=== PATIENT | female | born 1940 | race Caucasian/White ===

== ENCOUNTER → 2017-01-12 | Outpatient (CLI) | payer OTHER ==
[2015-10-06 11:30] VITALS: BP 185/85
--- NOTE | 2017-01-12 14:03 | KCIC ---
PROCEDURE PA and lateral skull radiographs 01/12/2017 HISTORY Unknown bilateral ear surgery over 20 years ago. Pre MRI evaluation. FINDINGS PA and lateral digital radiographs of the skull were obtained. Numerous dental fillings are noted. No additional metallic foreign body is seen. The paranasal sinuses are clear. No fracture is seen. The right lower 3rd molar is noted to be impacted. IMPRESSION No significant metallic foreign body is noted. Electronically signed by: Trevor Hoover MD (Jan 12, 2017 14:01:50)
--- NOTE | 2017-01-12 15:40 | KCIC ---
PROCEDURE MR of the right shoulder HISTORY Right shoulder pain after injury August 2016. TECHNIQUE Standard multiplanar sequences are obtained. COMPARISON None FINDINGS Moderate to severe motion degradation despite repeated attempts scanning. The acromioclavicular joint is mildly degenerative. Full-thickness tear anterior supraspinatus tendon measures 1.5 cm AP diameter cm retraction. Generalized rotator cuff tendinosis. Mild partial subscapularis tendon tear mild rotator cuff muscle atrophy. Mild fluid in the subdeltoid bursa. Small glenohumeral joint effusion. At least mild glenohumeral joint osteoarthritis. Labrum exam compromised by the motion, cannot exclude labral degeneration or tearing. Biceps tendinosis. Small glenohumeral joint effusion. No bone lesion or acute fracture. No evidence of a no acute soft tissue injury. IMPRESSION 1. Moderate to severe motion degradation. 2. Rotator cuff tear. Small full-thickness tear of the supraspinatus tendon. Partial subscapularis tendon tear. Electronically signed by: Jessú Vizcarra MD (Jan 12, 2017 15:38:54)
== END | disposition home or self-care (01) ==
LOC: KCIC MRI 13:32
PROVIDERS: ATTEND Orthopaedic Surgery Adult Reconstructive Orthopaedic Surgery
DX: Z01.812 Encounter for preprocedural laboratory examination (principal); M25.511 Pain in right shoulder; M75.101 Unspecified rotator cuff tear or rupture of right shoulder, not specified as traumatic
CPT/HCPCS: 70250; 73221

== ENCOUNTER → 2017-05-06 | Outpatient (CLI) | payer OTHER ==
[2015-10-06 11:30] VITALS: BP 185/85
--- NOTE | 2017-05-06 13:23 | KCIC ---
Bilateral digital screening mammograms: Reason for examination: Routine screening. Comparison is made to previous studies dated back to 06/13/2013. Interpretation was made with the benefit of CAD. The skin and nipples show no abnormalities. No abnormal axillary lymph nodes are seen. The breast parenchyma is heterogeneously dense. (Breast density: Category C) There continues to be some parenchymal asymmetry anteriorly in the central left breast on CC view which is unchanged. There are no new dominant masses, suspicious calcifications or architectural distortion. Benign calcifications are again seen. Impression: No evidence of malignancy. Recommend routine screening. Your patient's mammogram demonstrates that she has dense breast tissue (breast density category C or D), which could hide abnormalities, and if she has other risk factors for breast cancer that have been identified, she might benefit from supplemental screening tests that may be suggested by you as her ordering physician. Dense breast tissue, in and of itself, is a relatively common condition. Therefore, this information is not provided to cause undue concern, but rather to raise your awareness and to promote discussion with your patient regarding the presence of other risk factors, in addition to dense breast tissue. Your patient's mammography results will be sent to her. BI-RADS Category 2: Benign. "Our facility is accredited by the [employer] Mammography Program." This patient's information has been entered into a reminder system for the patient to be notified with the results of her examination and a target date for the next mammogram. Electronically signed by: Bianca Flood MD (05/06/2017 1:20 PM) [id number]
== END | disposition home or self-care (01) ==
LOC: KCIC MAMMO 08:07
PROVIDERS: ATTEND Family Medicine
DX: Z12.31 Encounter for screening mammogram for malignant neoplasm of breast (principal)
CPT/HCPCS: G0202; 77067

== ENCOUNTER 2018-05-01 13:08 | Emergency (ER) | payer OTHER ==
[2018-05-01] MEDS: oxyCODONE IR 5 MG TABLET PO (14:23)
[2018-05-01] MEDS: LIDOCAINE (700MG/PATCH) PATCH. TD (14:24)
== END 2018-05-01 15:45 | disposition home or self-care (01) ==
LOC: ER 13:08
DX: M16.11 Unilateral primary osteoarthritis, right hip (principal); F41.9 Anxiety disorder, unspecified; E78.00 Pure hypercholesterolemia, unspecified; Z90.710 Acquired absence of both cervix and uterus
CPT/HCPCS: 73700; 99283; 99284

== ENCOUNTER → 2018-05-19 | Outpatient (CLI) | payer OTHER | END | disposition home or self-care (01) | LOC: KCIC MAMMO 10:10 | DX: Z12.31 Encounter for screening mammogram for malignant neoplasm of breast (principal); E78.00 Pure hypercholesterolemia, unspecified; F41.9 Anxiety disorder, unspecified; Z90.710 Acquired absence of both cervix and uterus | CPT/HCPCS: 77063; 77067 ==

== ENCOUNTER → 2018-05-21 | Outpatient (CLI) | payer OTHER | END | disposition home or self-care (01) | LOC: KCIC US 13:49 | DX: R92.8 Other abnormal and inconclusive findings on diagnostic imaging of breast (principal) | CPT/HCPCS: 76641 ==

== ENCOUNTER → 2018-06-10 | Outpatient (CLI) | payer OTHER ==
[2018-05-01 13:10] VITALS: BP 149/74
[~2018-06-10] MED LIST: OXYC5TAB95 PO; PRED20TA PO
--- NOTE | 2018-06-10 17:56 | KCIC ---
BILATERAL DUPLEX CAROTID SONOGRAPHY History: Bilateral carotid bruit, syncopal episode. Technique: Duplex sonography of the cervical portion of both carotid arteries was performed. Real-time grayscale, color flow Doppler, and Doppler spectral waveform analysis is performed. Findings: Right side: Peak systolic flow velocity of the CCA is 74 cm/sec. Peak systolic flow velocity of the ICA is 119 cm/sec. The ICA/CCA ratio is 1.6. Peak end diastolic flow velocity of the ICA is 26 cm/sec. The peak systolic velocity of the ECA is 107 cm/sec. No significant plaque formation is identified. Left side: Peak systolic flow velocity of the CCA is 62 cm/sec. Peak systolic flow velocity of the ICA is 155 cm/sec. The ICA/CCA ratio is 2.5. Peak end diastolic flow velocity of the ICA is 37 cm/sec. Peak systolic flow velocity of the ECA is 119 cm/sec. There is moderate heterogeneous plaque in the carotid bulb. Vertebral arteries: Bilateral vertebral arteries demonstrate antegrade flow. IMPRESSION: 1. Findings suggest a 50-69% stenosis of the left internal carotid artery. 2. Findings suggest a less than 50% stenosis of the right internal carotid artery. PQRS Compliance Statement - Stenosis calculations for CT, MR and conventional angiography are based upon measurement of the distal ICA diameter in accordance with the NASCET methodology. Stenosis calculations for carotid ultrasound studies are derived from validated velocity criteria which are known to correlate with the NASCET methodology. Electronically signed by: Nathanael Reynolds MD (06/10/2018 5:52 PM) [id number]
== END | disposition home or self-care (01) ==
LOC: KCIC US 14:58
PROVIDERS: ATTEND Family Medicine
DX: I65.23 Occlusion and stenosis of bilateral carotid arteries (principal); R09.89 Other specified symptoms and signs involving the circulatory and respiratory systems; R55 Syncope and collapse
CPT/HCPCS: 93880

== ENCOUNTER → 2018-06-30 | Outpatient (CLI) | payer OTHER ==
[2018-05-01 13:10] VITALS: BP 149/74
[~2018-06-30] MED LIST changes: +ALPR0.254 PO; +ASPI81TA50 PO; +CALC600T4 PO; +CITA20TA9 PO; +GABA-586 PO; +LOVA40TA2 PO; +METO-239 PO
--- NOTE | 2018-07-01 00:04 | PAIN ---
DATE OF SERVICE: 06/30/2018 INITIAL CONSULTATION FOR PAIN CLINIC CHIEF COMPLAINT: Low back and right lower extremity pain. HISTORY OF PRESENT ILLNESS: This is a 77-year-old female who presents with history of pain in the low back, right lower extremity, mostly in the posterior gluteus, lateral thigh, lateral anterior thigh, medial thigh, medial knee and medial lower leg on the right side only. The patient reports it is going on since about March of this year, gradually increasing, not a result of any specific injuries or accident she is aware of. She did fall when she is playing golf on her right side but is not sure that this caused the pain, primarily was hurting before this as well. The patient reports it is worse with standing, walking, changing positions, has been awakening her from sleep occasionally but much better with sitting or lying down. The patient reports it does not affect her bowel or bladder control but does affect her ability to walk. She is not using any assistive devices currently such as canes or walkers to ambulate. The patient did have CT scan of the lumbar spine and right hip showing no evidence of displaced hip fracture and the patient has a concern for occult fracture and insufficiency, degenerative changes as described. The MRI scan of the lumbar spine showing bilateral foraminal narrowing at multiple levels due to disk bulging and facet arthropathy; severe spinal stenosis, L5-S1; central spinal stenosis, L2-L3 and L3-L4 with L3-L4 severe bilateral foraminal narrowing exaggerated with asymmetric disk bulge greater to the right of midline with a focal right paramidline disk protrusion measuring 7 mm in diameter. The patient reports the pain is constant, sharp, stabbing, throbbing, shooting, radiating, aching in the right leg as described. The patient reports a disability rate from 0-10, 10 being the worst, is an 8 with family and home responsibilities, recreation, 7 with social activity, 4 with self care and life support activities. The patient has tried hydrocodone, oxycodone, prednisone packs and gabapentin, all of which decreased the pain but only temporarily. The patient has not had any recurrent interventional treatments. The patient has had physical therapy in the past, is still doing the exercises with the physical therapy and does these daily, especially in the morning when she first gets up doing some stretching. She has not had any chiropractic treatments, however, but again continues to do stretching on her own every day and the patient has been trying to walk, which is becoming more and more difficult with weakness in the right leg. PAST MEDICAL HISTORY: Significant for hearing loss, hypertension, dizziness, incontinence in the past, anxiety and arthritis. PAST SURGICAL HISTORY: Previous surgeries include hysterectomy and bilateral cataract extractions. CURRENT MEDICATIONS: Include gabapentin, alprazolam, lovastatin, Celexa, calcium and daily baby aspirin. ALLERGIES: The patient has no known drug allergies. FAMILY HISTORY: Significant for colon cancer in both of her parents. SOCIAL HISTORY: The patient does not drink alcohol, does smoke cigarettes about 1 pack a day and has for 40 years. Does not use any illegal, illicit or recreational drugs. She is single and lives locally in [place], [place]. REVIEW OF SYSTEMS: The patient's review of systems is positive for those items mentioned in history of present illness. All systems reviewed and otherwise negative. It is complete, full and well documented on the patient's chart. PHYSICAL EXAMINATION: VITAL SIGNS: The patient's blood pressure is 147/62, pulse 63, respirations are 16, temperature 97.7 degrees Fahrenheit, height is 5 feet .5 inches and weight is 141 pounds. GENERAL: The patient is awake, alert, oriented, appropriate and very pleasant demeanor. HEENT: Head shows normocephalic and atraumatic. Extraocular movements are intact and symmetrical. Oral cavity: Mucous membranes moist and pink. Dentition is intact. NECK: Shows anterior throat supple without palpable lymphadenopathy noted. Swallow reflex symmetrical. CHEST: Shows normal with inspection. Breath sounds clear to auscultation bilaterally. HEART: Shows S1 and S2 clear. No murmurs auscultated. ABDOMEN: Soft, nontender and nondistended. No palpable organomegaly is noted. No rebound or guarding demonstrated. BACK: Shows spine grossly in the midline with normal-appearing thoracic kyphosis and lumbar lordotic curvature. Lumbar paraspinous muscle shows symmetrical on inspection. On palpation shows some moderate tenderness diffusely but only diffusely in the lower lumbar distribution, more on the right than the left but symmetrical. No tenderness over the sacrum or sacroiliac regions or the spinous processes. The patient has good rotational motion of the lumbar spine, both laterally as well as extension and flexion without significant difficulty. LOWER EXTREMITIES: Show deep tendon reflexes at 2+ in the patellar, 1+ tendo calcaneus tendons. Motor exam is strong with 5/5 dorsiflexion, extension, quadriceps and hamstring flexion equal. Peripheral pulses are 1+ posterior tibia. No peripheral edema is noted. Gaenslen's maneuver and River's maneuvers are negative bilaterally. The patient has a positive straight leg raise on the right at about 40 degrees. Left side is negative and the right side is decreased with knee flexion on the right side. The patient is able to stand, walks with a normal appearing gait, does not appear to favor the right or left lower extremity significantly, not using any assistive devices to ambulate currently. The patient's skin shows warm and dry, good turgor. No edema. No sores or bruising. IMPRESSION: 1. This is a 77-year-old female with an approximate 3-month history of increasing pain, low back, right lower extremity in a radicular fashion following L3 and L4 dermatomal distribution. 2. MRI scan of the lumbar spine as noted. 3. Arthritis. 4. Hypertension. 5. Cigarette smoking. PLAN: Options were discussed with the patient including conservative medical management, physical therapy, interventional techniques and she is doing conservative therapies with stretching and strengthening exercises on her own from physical therapy in the past and walking daily. She would like to pursue interventional techniques. We discussed lumbar epidural steroid injection using description as well as anatomical models to describe the procedure. The patient will wait for preauthorization with her insurance provider. In the meantime, we will try Medrol Dosepak as she has done well with the oral steroid pack for the past. The patient was given instructions as well as side effects to be aware of with the medication. We will follow up in approximately one week. We will plan on lumbar epidural steroid injection at that time. LAYNE CONNOLLY MD DR: TONYA/agnes JOB#: [id number] / [id number] [employer] Dove
== END | disposition home or self-care (01) ==
LOC: PNCL 08:46
PROVIDERS: ATTEND Anesthesiology
DX: M79.604 Pain in right leg (principal); M54.5 Low back pain; M16.11 Unilateral primary osteoarthritis, right hip; I10 Essential (primary) hypertension; F17.200 Nicotine dependence, unspecified, uncomplicated; E78.00 Pure hypercholesterolemia, unspecified; Z90.710 Acquired absence of both cervix and uterus
CPT/HCPCS: G0463

== ENCOUNTER → 2018-07-08 | Outpatient (CLI) | payer OTHER ==
[2018-05-01 13:10] VITALS: BP 149/74
[~2018-07-08] MED LIST changes: +IOHEXOL 180 MG/ML 10 ML VIAL. ONE; +LIDOCAINE 2% PF 2ML VIAL. ONE; +methylPREDNISolone ACETATE 40 MG/ML VIAL. ONE; +methylPREDNISolone ACETATE 80 MG/ML VIAL. ONE
--- NOTE | 2018-07-08 13:39 | PAIN ---
DATE OF SERVICE: 07/08/2018 PROGRESS NOTE FOR PAIN CLINIC DIAGNOSIS: Lumbar radiculopathy with lumbar degenerative disk disease and lumbar herniated disk. HISTORY OF PRESENT ILLNESS: The patient is a 77-year-old female who returns for followup status post initial evaluation and preauthorization for epidural steroid injection. The patient has obtained this and would like to proceed today. Reports still significant pain in the low back and right lower extremity, mostly in the anterior lateral aspect of the thigh, anterior medial thigh and across the low back. The patient reports it is an aching, dull, tight, cramping and becoming more constant, worse with walking and standing, better with sitting or lying down. The patient reports it does not awaken her from sleep at night and she sleeps fairly well. The patient reports it is a 7 on a scale of 10 at its worst, 7 on average, 6 at its least and is a 7 today. The patient reports no new motor or sensory deficits, no new bowel or bladder incontinence or other complaints. PHYSICAL EXAMINATION: VITAL SIGNS: Blood pressure is 115/72, pulse is 80, respirations are 18, temperature 97.1 degrees Fahrenheit, height is 5 feet 3 inches and weight is 139 pounds. GENERAL: The patient is awake, alert, oriented, appropriate, very pleasant demeanor. HEENT: Head shows normocephalic, atraumatic. Extraocular movements are intact and symmetrical. Oral cavity: Mucous membranes are moist and pink. Dentition is intact. NECK: Shows anterior throat supple without palpable lymphadenopathy noted. Swallow reflex is symmetrical. CHEST: Shows normal on inspection. Breath sounds are clear to auscultation bilaterally. HEART: Shows S1, S2 clear. No murmurs auscultated. ABDOMEN: Soft, nontender, nondistended. No palpable organomegaly is noted. No rebound or guarding demonstrated. BACK: Shows spine grossly in the midline. Normal appearing thoracic kyphosis and lumbar lordotic curvature. Lumbar paraspinous muscle shows symmetrical on inspection, on palpation has some mild tenderness in the upper and middle distribution of the paraspinous muscles, but only diffusely without radiation. EXTREMITIES: Lower extremities show deep tendon reflexes at 2+ in the patellar and tendo calcaneus tendons are 1+. Motor exam is strong with 5/5 dorsiflexion and extension and equal. Peripheral pulses are 1+. No peripheral edema is noted bilaterally. Options were discussed with the patient. The patient's old chart was reviewed as her current medication regimen updated. Current review of systems updated today as well. We will proceed with a lumbar epidural steroid injection today with fluoroscopic guidance. Risks were again discussed including, but not limited to bleeding, infection, possibility of epidural hematoma, subsequent neurologic compromise, dural puncture, headaches, spinal cord and/or nerve damage, side effects of steroid medication and poor results regarding pain control. The patient understands and wished to proceed. The patient will return to the clinic in approximately 2 weeks for followup, was counseled on return appointment, activity level and side effects to be aware of. DIAGNOSIS: Lumbar radiculopathy with lumbar degenerative disk disease and lumbar herniated disk. PROCEDURE: Lumbar epidural steroid injection, translaminar approach at L3-L4 level using C-arm fluoroscopic guidance under sterile prep and drape using local anesthetic. MEDICATION INJECTED: A total of 120 mg Depo-Medrol plus 10 mL of preservative-free normal saline and 2 mL of Isovue for contrast. CONDITION AT DISCHARGE: Stable. The patient tolerated the procedure well, had no complications. LAYNE CONNOLLY MD DR: TONYA/agnes JOB#: [id number] / [id number]
== END | disposition home or self-care (01) ==
LOC: PNCL 08:44
PROVIDERS: ATTEND Anesthesiology
DX: M51.16 Intervertebral disc disorders with radiculopathy, lumbar region (principal)
CPT/HCPCS: 62323; J1030; J1040; J2001; Q9965

== ENCOUNTER → 2018-07-28 | Outpatient (CLI) | payer OTHER ==
[2018-05-01 13:10] VITALS: BP 149/74
[~2018-07-28] MED LIST changes: -IOHEXOL 180 MG/ML 10 ML VIAL. ONE; -LIDOCAINE 2% PF 2ML VIAL. ONE; -methylPREDNISolone ACETATE 40 MG/ML VIAL. ONE; -methylPREDNISolone ACETATE 80 MG/ML VIAL. ONE
--- NOTE | 2018-07-28 20:45 | PAIN ---
DATE OF SERVICE: 07/28/2018 DIAGNOSES: Lumbar radiculopathy with lumbar degenerative disk disease and lumbar herniated disk. HISTORY OF PRESENT ILLNESS: The patient is a 77-year-old female who returns for followup status post lumbar epidural steroid injection x 1. The patient reports about 75% improvement for the first 2-1/2 weeks after the injection. The patient reports she did very well. The pain is beginning to return now, however, in the low back and right lower extremity in a radicular fashion in the right posterior gluteus, lateral thigh, lateral anterior thigh, medial thigh and medial lower leg. The patient reports it is aching and dull, becoming more constant, worse with walking, standing and change in positions. Initially, she was walking greater distances, she had been playing golf with greater ease and comfort, able to do household activities with much ease and comfort as well and sleeping better at night. The patient reports still not waking her from sleep. Reports the pain to 5 on a scale of 10 at its worst, 4 on average, 4 at its least and is a 4 today, it is sharp, aching and dull, becoming more shooting and radiating in the right leg. The patient reports some significant hip pain as well after the last visit. While the back was feeling better and the leg is doing better, the hip and groin itself was feeling much more pain when she was walking and standing, especially playing golf. The patient has had some hip pain in the past, had a CT scan showing persistent clinical concern for occult fracture, insufficiency fracture with the radiologist recommending an MRI of the right hip to better evaluate it with some degenerative changes as well. We discussed this with both she and her daughters and we will order an MRI scan of the right hip to make sure we are not overlooking any other pathology. Otherwise, the patient is doing very well, no new changes. No bowel or bladder incontinence or other complaints. PHYSICAL EXAMINATION: VITAL SIGNS: The patient's blood pressure 142/61, pulse 71, respirations 18, temperature 98.3 degrees Fahrenheit, height is 5 feet 3 inches, weight 143 pounds. GENERAL: The patient is awake, alert, oriented, appropriate, very pleasant demeanor. HEENT: Shows normocephalic, atraumatic. Extraocular movements intact and symmetrical. Oral cavity: Mucous membranes moist and pink. Dentition is intact. NECK: Shows anterior throat supple without palpable lymphadenopathy noted. Swallow reflex symmetrical. CHEST: Shows normal with inspection. Breath sounds clear to auscultation bilaterally. HEART: Shows S1, S2 clear. No murmurs auscultated. ABDOMEN: Soft, nontender, nondistended. No palpable organomegaly is noted. No rebound or guarding demonstrated. BACK: Shows spine grossly in the midline. Normal appearing thoracic kyphosis and lumbar lordotic curvature. Lumbar paraspinous muscle shows symmetrical on inspection and palpation shows some mild tenderness, but only diffusely in the lower lumbar distribution, but without radiation. The patient has full rotational motion of lumbar spine, both laterally as well as extension and flexion without difficulty. No tenderness over the sacrum or sacroiliac regions. LOWER EXTREMITIES: Show deep tendon reflexes 2+ in the patellar, 1+ tendo-calcaneus tendons. Motor exam is strong with 5/5 dorsiflexion and extension. The patient does still have a slight straight leg raises positive on the right at about 45 degrees, decreased with knee flexion, left side is negative. Gaenslen's and River's maneuvers are negative bilaterally, also negative on the left, slightly positive River's maneuver on the right with external rotation and hip flexion with some groin pain involved which is not present on the left side. Peripheral pulses are 1+ posterior tibia. No peripheral edema is noted in the lower extremities. Options were discussed with the patient. The patient's old chart was reviewed as her current medication regimen updated. Current review of systems updated today as well. We will preauthorize the patient for a second lumbar epidural steroid injection as she still has significant radicular pain in the L3-L4 dermatomal distribution on the right. Also, we will preauthorize MRI scan of the right hip joint as she has had some significant hip pain with a positive River sign on the right and pain in the groin with walking, especially climbing stairs with all of her weight on her right leg and with a recommendation from radiologist on CT scan for MRI evaluation as well. The patient will follow up in approximately one week. We will plan on second lumbar epidural steroid injection and at that time review the patient's right hip MRI scan. LAYNE CONNOLLY MD DR: TONYA/agnes JOB#: [id number] / [id number]
== END | disposition home or self-care (01) ==
LOC: PNCL 08:03
PROVIDERS: ATTEND Anesthesiology
DX: M51.16 Intervertebral disc disorders with radiculopathy, lumbar region (principal)
CPT/HCPCS: G0463

== ENCOUNTER → 2018-08-03 | Outpatient (CLI) | payer OTHER ==
[2018-05-01 13:10] VITALS: BP 149/74
--- NOTE | 2018-08-03 11:12 | KCIC ---
MR of the right hip Indication: Right hip pain. Fell a few months ago. Chronic right hip pain since that time. Technique: Standard multiplanar sequences are obtained. FINDINGS: Artifact: No significant image degradation. Bones: No bone lesion, acute fracture or acute bone marrow edema. No femoral head osteonecrosis. Effusion: No significant effusion Joint: Mild primary osteoarthritis. Labrum: Tear of the superior labrum. Gluteus minimus tendon: Intact Gluteus medius tendon: Intact Hamstring tendon: Intact Iliopsoas tendon: Intact Rectus femoris tendon attachment:Intact Soft tissue:No significant acute findings. Coronal STIR survey sequence inclusive of the contralateral hip demonstrates there is a para labral cyst along the left hip, could also indicate a left hip labral tear. IMPRESSION: 1. Right hip labral tear. 2. Survey sequence suggests a left hip labral tear as indicated by a para labral cyst. Electronically signed by: Jesús Vizcarra MD (08/03/2018 11:09 AM) [id number]
== END | disposition home or self-care (01) ==
LOC: KCIC MRI 08:52
PROVIDERS: ATTEND Anesthesiology
DX: S73.191A Other sprain of right hip, initial encounter (principal); M16.11 Unilateral primary osteoarthritis, right hip; W18.39XA Other fall on same level, initial encounter; Y93.89 Activity, other specified; Y92.89 Other specified places as the place of occurrence of the external cause; Y99.8 Other external cause status
CPT/HCPCS: 73721

== ENCOUNTER → 2018-08-11 | Outpatient (CLI) | payer OTHER ==
[2018-05-01 13:10] VITALS: BP 149/74
[~2018-08-11] MED LIST changes: +IOHEXOL 180 MG/ML 10 ML VIAL. ONE; +LIDOCAINE 1% PF 2 ML VIAL. ONE; +methylPREDNISolone ACETATE 40 MG/ML VIAL. ONE; +methylPREDNISolone ACETATE 80 MG/ML VIAL. ONE
--- NOTE | 2018-08-11 21:01 | PAIN ---
DATE OF SERVICE: 08/11/2018 DIAGNOSES: Lumbar radiculopathy with lumbar degenerative disk disease and lumbar herniated disk. HISTORY OF PRESENT ILLNESS: The patient is a 77-year-old female who returns for followup status post lumbar epidural steroid injection x 1 about 75% improvement in her right hip pain and low back pain. The patient was waiting for preauthorization from her insurance provider and the pain is now down to about a 40% improvement after the wait with pain across the low back into the right hip, right lateral thigh, lateral anterior thigh, medial thigh, medial knee and calf as well. The patient reports it is aching and dull and tight at times. The patient reports her pain as 6 on a scale 10 at its worst, 6 on average, 5 at its least and is a 6 today. The patient reports no new motor or sensory deficits, no new bowel or bladder incontinence or other complaints, worse with standing, walking, changing positions, sitting for prolonged periods, better with lying down, does not awaken her from sleep at night. PHYSICAL EXAMINATION: VITAL SIGNS: The patient's blood pressure 117/59, pulse 63, respirations 18, temperature 98.0 degrees Fahrenheit. Weight 153 pounds. GENERAL: The patient is awake, alert, oriented, appropriate, very pleasant demeanor. HEENT: Head is normocephalic, atraumatic. Extraocular movements are intact and symmetrical. Oral cavity: Mucous membranes are moist and pink. Dentition is intact. NECK: Shows anterior throat supple without palpable lymphadenopathy noted. Swallow reflex is symmetrical. CHEST: Shows normal with inspection. Breath sounds are clear to auscultation bilaterally. HEART: Shows S1, S2 clear. No murmurs auscultated. ABDOMEN: Soft, nontender, nondistended. No palpable organomegaly is noted. No rebound or guarding demonstrated. BACK: Shows spine grossly in the midline. Slight exaggeration of thoracic kyphosis and mild flattening of lumbar lordotic curvature. Lumbar paraspinous muscle shows symmetrical on inspection, with palpation shows some moderate tenderness only diffusely without radiation. The patient has good rotational motion bilaterally, right and left, as well as extension and flexion without significant pain reported. EXTREMITIES: The patient's lower extremities show deep tendon reflexes 2+ in the patellar, 1+ tendo-calcaneus tendons. Motor exam is strong with 5/5 dorsiflexion, extension, quadriceps and hamstring flexion equal bilaterally. Peripheral pulses are 1+ posterior tibial. No peripheral edema is noted. Options were discussed with the patient. The patient's old chart was reviewed as her current medication regimen updated. Current review of systems updated today as well. We will proceed with a second in the series of lumbar epidural steroid injection today with fluoroscopic guidance. Risks were again discussed including, but not limited to bleeding, infection, possibility of epidural hematoma and subsequent neurological compromise, dural puncture, headaches, spinal cord and/or nerve damage, side effects of steroid medication and poor results regarding pain control. The patient understands and wished to proceed. The patient will return to clinic in approximately 2 weeks for followup, was counseled on return appointment, activity level and side effects to be aware of. DIAGNOSES: Lumbar radiculopathy with lumbar degenerative disk disease, lumbar herniated disk. PROCEDURE: Lumbar epidural steroid injection, translaminar approach at L3-L4 level using C-arm fluoroscopic guidance under sterile prep and drape using local anesthetic. MEDICATION INJECTED: A total of 120 mg Depo-Medrol plus 10 mL of preservative-free normal saline and 2 mL of Isovue for contrast. CONDITION AT DISCHARGE: Stable. The patient tolerated procedure well, had no complications. LAYNE CONNOLLY MD DR: TONYA/agnes JOB#: [id number] / [id number]
== END | disposition home or self-care (01) ==
LOC: PNCL 09:05
PROVIDERS: ATTEND Anesthesiology
DX: M51.16 Intervertebral disc disorders with radiculopathy, lumbar region (principal)
CPT/HCPCS: 62323; J1030; J1040; Q9965

== ENCOUNTER → 2018-08-30 | Outpatient (CLI) | payer OTHER ==
[2018-05-01 13:10] VITALS: BP 149/74
[~2018-08-30] MED LIST changes: -IOHEXOL 180 MG/ML 10 ML VIAL. ONE; -LIDOCAINE 1% PF 2 ML VIAL. ONE; -methylPREDNISolone ACETATE 40 MG/ML VIAL. ONE; -methylPREDNISolone ACETATE 80 MG/ML VIAL. ONE
--- NOTE | 2018-08-30 21:12 | PAIN ---
DATE OF SERVICE: 08/30/2018 DIAGNOSES: Lumbar radiculopathy with lumbar degenerative disk disease, lumbar herniated disk. HISTORY OF PRESENT ILLNESS: The patient is a 77-year-old female who returns for followup status post lumbar epidural steroid injection x 2. The patient reports 50% improvement in her low back pain. The patient reports that the pain comes back after about a week though. The patient reports it is still in the low back, bilateral lower extremities to some extent, mostly in the back itself. The patient reports no new motor or sensory deficits, no new bowel or bladder incontinence or other complaints. Occasional radiation to the lower extremities, mostly in the lateral anterior aspect of the thighs. The patient reports it is a 5 on a scale of 10 at all times, worst, average and at its least and is a 5 today. The patient reports it is aching, tight, radiating as described without any new motor or sensory deficits, no new bowel or bladder incontinence, difficulty when getting out of bed in the morning, but once she takes the gabapentin, the pain is relieved fairly quickly after about an hour. The patient reports throughout the day, she does fairly well and is fairly happy with those results. The patient reports no new motor or sensory deficits, no new bowel or bladder incontinence or other complaints. PHYSICAL EXAMINATION: VITAL SIGNS: The patient's blood pressure 120/64, pulse 66, respirations 16, temperature 98.0 degrees Fahrenheit. Height 5 feet 3-1/2 inches, weighs 151 pounds. GENERAL: The patient is awake, alert, oriented, appropriate, very pleasant demeanor. HEENT: Head is normocephalic, atraumatic. Extraocular movements intact and symmetrical. Oral cavity: Mucous membranes moist and pink. Dentition is intact. NECK: Shows anterior throat supple without palpable lymphadenopathy noted. Swallow reflex symmetrical. CHEST: Shows normal with inspection. Breath sounds clear to auscultation bilaterally. HEART: Shows S1, S2 clear. No murmurs auscultated. ABDOMEN: Soft, nontender, nondistended. No palpable organomegaly is noted. No rebound or guarding demonstrated. BACK: Shows spine grossly in the midline. Normal appearing thoracic kyphosis and minor flattening of lumbar lordotic curvature. Lumbar paraspinous muscle shows symmetrical on inspection and palpation shows some moderate tenderness bilaterally, but only diffusely in the middle and lower distribution of paraspinous muscles. The patient has good rotational motion both laterally as well as extension and flexion without significant pain reported. Lower extremities show deep tendon reflexes 2+ in the patellar, 1+ tendo-calcaneus tendons are equal. Motor exam is strong with 5/5 dorsiflexion, extension, quadriceps and hamstring flexions and equal. Peripheral pulses are 1+ posterior tibial. No peripheral edema is noted bilaterally. Options were discussed with the patient. The patient's old chart was reviewed as his current medication regimen updated. Current review of systems updated today as well. We will hold on any further injections at this time per her request. Also, discussed followup with her hip regarding right labral tear with an orthopedic surgeon. The patient will make these arrangements with her own orthopedist. The patient will get a copy of her MRI of the hip as well for this purpose. The patient will leave it open at this time. We will have her followup as she desires for another epidural steroid injection if pain returns significantly or changes. We will have her followup at this time on as needed basis per her request. LAYNE CONNOLLY MD DR: TONYA/agnes JOB#: [id number] / [id number]
== END | disposition home or self-care (01) ==
LOC: PNCL 09:51
PROVIDERS: ATTEND Anesthesiology
DX: M51.16 Intervertebral disc disorders with radiculopathy, lumbar region (principal)
CPT/HCPCS: G0463

== ENCOUNTER → 2018-10-11 | Outpatient (CLI) | payer OTHER ==
[2018-05-01 13:10] VITALS: BP 149/74
[~2018-10-11] MED LIST changes: +BUPIVACAINE MPF 0.25% 10 ML VIAL. ONE; -GABA-586 PO; +GABA300C18 PO; +IOHEXOL 180 MG/ML 10 ML VIAL. ONE; +OXYC5TAB4 PO; -OXYC5TAB95 PO; +methylPREDNISolone ACETATE 80 MG/ML VIAL. ONE
--- NOTE | 2018-10-11 10:51 | PAIN ---
DATE OF SERVICE: 10/11/2018 PROGRESS NOTE FOR PAIN CLINIC DIAGNOSES: 1. Lumbar radiculopathy with lumbar degenerative disk disease and lumbar herniated disk. 2. Right hip joint pain with primary osteoarthritis, right hip joint. HISTORY OF PRESENT ILLNESS: The patient is a 77-year-old female who returns for followup status post lumbar epidural steroid injection x 2. The patient reports about 50% improvement overall in the low back and left leg and hip; however, we discussed things with her further and with some significant osteoarthritic findings in the left hip and labral tear. The patient would like to pursue a left intra-articular hip joint injection. We made the arrangements for this and preauthorization and she has obtained this now and returns, would like to proceed. The patient reports the pain is 4 on a scale of 10 at its worst, 4 on average and a 3 at its least and is a 4 today. The patient reports it is dull, alternating with tight, radiating to the left groin, as well as in the posterior gluteus and into the left leg as noted. The patient reports no new motor or sensory deficits and no new bowel or bladder incontinence. Sleeping well at night, is much worse when she is standing, walking, putting weight on her left leg. Changing positions, better with sitting or lying down, does not awaken her from sleep. The patient reports no new motor or sensory deficits and no new bowel or bladder incontinence or other complaints. PHYSICAL EXAMINATION: VITAL SIGNS: The patient's blood pressure 141/64, pulse 67, respirations 18 and temperature 98.0 degrees Fahrenheit. Height 5 feet 3 inches and weight 154 pounds. GENERAL: The patient is awake, alert, oriented, appropriate and very pleasant demeanor. HEENT: Head shows normocephalic and atraumatic. Extraocular movements are intact and symmetrical. Oral cavity: Mucous membranes moist and pink. Dentition intact. NECK: Shows anterior throat supple without palpable lymphadenopathy noted. Swallow reflex symmetrical. CHEST: Shows normal with inspection. Breath sounds clear to auscultation bilaterally. HEART: Shows S1 and S2 clear. No murmurs auscultated. ABDOMEN: Soft, nontender and nondistended. No palpable organomegaly is noted. No rebound or guarding demonstrated. BACK: Shows spine grossly in the midline, normal-appearing cervical lordotic curvature, thoracic kyphotic curvature and lumbar lordotic curvature. Lumbar paraspinous muscle shows symmetrical on inspection and on palpation shows some mild tenderness diffusely throughout the upper, middle and lower distribution of the paraspinous muscles but only very diffusely without significant radiation. The patient has good rotational motion of the lumbar spine, both laterally as well as extension and flexion without significant difficulty. No tenderness over the sacrum or sacroiliac regions. EXTREMITIES: The patient's lower extremities show deep tendon reflexes at 2+ in the patellar, 1+ tendo-calcaneus tendons. Motor exam is strong with 5/5 dorsiflexion, extension, quadriceps and hamstring flexion. The patient's left hip shows mild River's maneuver with left is normal. Peripheral pulses are 1+ posterior tibia. No peripheral edema is noted. Options were discussed with the patient. The patient's old chart was reviewed as well as her current medication regimen updated. Current review of systems updated today as well and we will proceed with a right intra-articular hip joint injection using C-arm fluoroscopic guidance under sterile prep and drape. Risks were discussed including, but not limited to bleeding, infection, possibility of intravascular injection sequelae, spread of local anesthetic and numbness, side effects of steroid medication, exposure to fluoroscopy and poor results regarding pain control. The patient understands and wished to proceed. The patient will return to the clinic in approximately 2 weeks for followup, was counseled as to return appointment, activity level and side effects to be aware of. DIAGNOSIS: Primary osteoarthritis, right hip joint with right hip joint pain. PROCEDURE: Right intraarticular hip joint injection using C-arm fluoroscopic guidance under sterile prep and drape using local anesthetic. MEDICATION INJECTED: A total of 80 mg of Depo-Medrol plus 3 mL of 0.25% bupivacaine and 2 mL of Isovue for contrast with good local spread without washout or uptake. CONDITION AT DISCHARGE: Stable. The patient tolerated the procedure well and had no complications. LAYNE CONNOLLY MD DR: TONYA/agnes JOB#: [id number] / [id number]
== END | disposition home or self-care (01) ==
LOC: PNCL 08:03
PROVIDERS: ATTEND Anesthesiology
DX: M16.11 Unilateral primary osteoarthritis, right hip (principal); M51.16 Intervertebral disc disorders with radiculopathy, lumbar region
CPT/HCPCS: 20610; 77002; J1040; J3490; Q9965

== ENCOUNTER → 2018-12-03 | Outpatient (CLI) | payer OTHER ==
[2018-05-01 13:10] VITALS: BP 149/74
[~2018-12-03] MED LIST changes: -BUPIVACAINE MPF 0.25% 10 ML VIAL. ONE; -IOHEXOL 180 MG/ML 10 ML VIAL. ONE; -methylPREDNISolone ACETATE 80 MG/ML VIAL. ONE
--- NOTE | 2018-12-03 12:58 | KCIC ---
Right breast diagnostic digital mammograms with 3-D tomosynthesis: Reason for examination: Follow-up nodules. Comparison is made to previous studies dated 05/19/2018 and 05/06/2017. Bilateral mammograms in CC and oblique projections were obtained with 2-D imaging and 3-D tomosynthesis imaging on a Siemens Inspiration unit and reviewed on the workstation. Interpretation was made with the benefit of CAD. The skin and nipples show no abnormalities. No abnormal axillary lymph nodes are seen. The breast parenchyma is heterogeneously dense. (Breast density: Category C.) There are small circumscribed nodules again seen in the right breast. There are no suspicious calcifications or architectural distortion. Benign calcifications are present. Impression: Small circumscribed nodules in the right breast. Ultrasound to follow. Your patient's mammogram demonstrates that she has dense breast tissue (breast density category C or D), which could hide abnormalities, and if she has other risk factors for breast cancer that have been identified, she might benefit from supplemental screening tests that may be suggested by you as her ordering physician. Dense breast tissue, in and of itself, is a relatively common condition. Therefore, this information is not provided to cause undue concern, but rather to raise your awareness and to promote discussion with your patient regarding the presence of other risk factors, in addition to dense breast tissue. Your patient's mammography results will be sent to her. BI-RAD Category 0: Incomplete. Needs additional imaging evaluation. Right breast ultrasound: Comparison is made to previous study dated 05/21/2018. Ultrasound examination was performed in the areas of mammographic concern and at the right axilla. In the 2:00 position 8 cm from the nipple, there is a 4.7 mm hypoechoic circumscribed lesion consistent with some focal fibrocystic change. In the 9:00 position 5 cm from the nipple, there is a hypoechoic circumscribed benign-appearing 3.2 mm fibrocystic type lesion. No abnormal appearing lymph nodes are seen in the axilla. IMPRESSION: Small subcentimeter benign-appearing fibrocystic type lesions at the 2:00 and 9:00 positions of the right breast. No suspicious lesion seen. Recommend reevaluation with ultrasound at the time of bilateral mammograms in 6 months. BI-RADS Category 3: Probably Benign. "Our facility is accredited by the [employer] Mammography [employer]." This patient's information has been entered into a reminder system for the patient to be notified with the results of her examination and a target date for the next mammogram. Electronically signed by: Bianca Flood MD (12/03/2018 12:54 PM) [id number]
== END | disposition home or self-care (01) ==
LOC: KCIC MAMMO 08:25
PROVIDERS: ATTEND Family Medicine
DX: R92.8 Other abnormal and inconclusive findings on diagnostic imaging of breast (principal)
CPT/HCPCS: 76641; 77065; G0279; 77061

== ENCOUNTER → 2019-06-08 | Outpatient (CLI) | payer OTHER ==
[2018-05-01 13:10] VITALS: BP 149/74
--- NOTE | 2019-06-08 13:19 | KCIC ---
BILATERAL DIAGNOSTIC 3-D MAMMOGRAPHY AND BREAST ULTRASOUND History: 6 month follow-up right breast. Comparison: Bilateral mammogram 05/19/2018. Diagnostic right mammogram and breast ultrasound, 2018. Technique: Routine MLO and CC tomosynthesis (3D) digital views performed. Images reviewed by the radiologist at dedicated workstation. Findings: Breast Tissue Density B : There are scattered areas of fibroglandular density. There are no dominant masses, suspicious microcalcifications or architectural distortion. Real-time ultrasound imaging of the right breast is performed. There are stable sub-5 mm fibrocystic changes in the 9:00 position 5 cm from the nipple, 2 areas at the 10:00 position 5 cm from the nipple, 10:00 position 6 cm from the nipple, and 2:00 position 8 cm from the nipple. No abnormal axillary lymph node. At the 1:00 position 5 cm from the nipple, there is a well-circumscribed hypoechoic, parallel, nonshadowing mass measuring up to 4 mm. Mass may be a fibroadenoma, was not seen previously. IMPRESSION: No mammographic evidence of malignancy. Stable fibrocystic changes in the right breast on ultrasound. There is a new tiny mass at the 1:00 position 5 cm from the nipple that may be a fibroadenoma. Recommend right breast ultrasound follow-up in 6 months. BI-RADS category 3: Probably benign. The images were reviewed with computer-aided detection. Patient information is entered into the reminder system with a target due date for the next screening mammogram. Mammography is the most sensitive method for finding small breast cancers, but it does not detect them all and is not a substitute for careful clinical examination. A negative mammogram does not negate a clinically suspicious finding and should not result in delay in biopsying a clinically suspicious abnormality. "Our facility is accredited by the [employer] Mammography [employer]." Electronically signed by: Nathanael Reynolds MD (06/08/2019 1:17 PM) [facility] [id number]
== END | disposition home or self-care (01) ==
LOC: KCIC MAMMO 09:52
PROVIDERS: ATTEND Family Medicine
DX: N63.12 Unspecified lump in the right breast, upper inner quadrant (principal)
CPT/HCPCS: 76641; 77066; G0279; 77062

== ENCOUNTER → 2019-12-12 | Outpatient (CLI) | payer MEDICARE, OTHER ==
[2018-05-01 13:10] VITALS: BP 149/74
--- NOTE | 2019-12-12 12:36 | KCIC ---
Right breast ultrasound: Reason for examination: Follow-up nodules. Comparison is made to previous study dated 04/08/2019. Ultrasound examination of the right breast and axilla was performed. There continues to be a small fibrocystic lesion at the 10:00 position 6 cm from the nipple which is stable. There also continues to be a small hypoechoic 4 mm nodule at the 1:00 position 5 cm from the nipple which may represent small fibroadenoma and is stable. No new cystic or solid lesions are seen. No abnormal appearing lymph nodes are seen in the axilla. IMPRESSION: Continued presence of benign-appearing nodules in the right breast which appear to be stable. No suspicious abnormalities are seen. Recommend reevaluation with ultrasound in 6 months which can be performed at the time of bilateral mammograms. BI-RADS Category 3: Probably Benign. "Our facility is accredited by the [employer] Mammography Program." This patient's information has been entered into a reminder system for the patient to be notified with the results of her examination and a target date for the next mammogram. Electronically signed by: Bianca Flood MD (12/12/2019 12:33 PM) [id number]
== END | disposition home or self-care (01) ==
LOC: KCIC US 09:39
PROVIDERS: ATTEND Family Medicine
DX: N63.11 Unspecified lump in the right breast, upper outer quadrant (principal)
CPT/HCPCS: 76641

== ENCOUNTER → 2021-08-07 | Outpatient (CLI) | payer MEDICARE ==
[2018-05-01 13:10] VITALS: BP 149/74
[~2021-08-07] MED LIST changes: -CALC600T4 PO; +CALC600T60 PO
--- NOTE | 2021-08-07 15:44 | KCIC ---
EXAM: CAROTID DOPPLER SONOGRAM. HISTORY: Carotid stenosis, smoking history, hypertension. TECHNIQUE: Jimenez scale and color Doppler sonographic evaluation of the neck with spectral waveform mike lysis was performed and static images are submitted for review. FINDINGS: RIGHT: The peak systolic velocity within the common carotid artery is 71 cm/sec. The peak systolic ve locity within the internal carotid artery is 102 cm/sec and the end diastolic velocity within the int ernal carotid artery is 31 cm/sec. The ICA/CCA ratio is 1.1. Grayscale images demonstrate no grayscal e stenosis. LEFT: The peak systolic velocity within the common carotid artery is 38 cm/sec. The peak systolic julian ocity within the internal carotid artery is 471 cm/sec and the end diastolic velocity within the inte rnal carotid artery is 164 cm/sec. The ICA/CCA ratio is 7.8. Grayscale images demonstrate no grayscal e stenosis. There is antegrade flow within both vertebral arteries. IMPRESSION: 1. >70% stenosis within the left proximal and mid left cervical internal carotid artery. PQRS Compliance Statement - Stenosis calculations for CT, MR and conventional angiography are based u shaila measurement of the distal ICA diameter in accordance with the NASCET methodology. Stenosis calcu lations for carotid ultrasound studies are derived from validated velocity criteria which are known t o correlate with the NASCET methodology. Electronically signed by: Akil Michel MD (08/07/2021 3:42 PM) [id number]
== END ==
LOC: KCIC US 13:43
PROVIDERS: ATTEND Family Medicine
DX: I65.22 Occlusion and stenosis of left carotid artery (principal)
CPT/HCPCS: 93880

== ENCOUNTER 2021-08-10 11:42 | Emergency (ER) | payer MEDICARE ==
[~2021-08-10] VITALS: Ht 160 cm; Wt 65.0 kg
[2021-08-10] MEDS ORDERED: IV NORMAL SALINE 1000ML BAG 1,000 ML IV ONE (12:00)
--- NOTE | 2021-08-10 12:08 | PHYS DOC ---
Past Medical History Past Medical History: Anxiety, High Cholesterol Additional Past Medical Histor: overactive bladder , RIGHT HIP PAIN Past Surgical History: Hysterectomy, Tonsillectomy Smoking Status: Current Every Day Smoker Alcohol Use: Rarely Drug Use: None General Adult EDM: Chief Complaint: NEURO SYMPTOMS/DEFICITS HPI: HPI: Patient is a 80 year old female with pmh of HTN and hypercholesterolemia presents with report of episode of expressive aphasia which occurred at approximately 1300 yesterday. Patient [place] the person next to her thought she potentially was drunk. Patient reports she does not drink any alcohol. Patient was aware that she was jumbling her words. Patient reports symptoms lasted approximately 5 to 10 minutes. Patient reports they have since resolved and she has not had no other symptoms. Patient denies any trauma. Patient does report taking a 81 mg aspirin daily. Denies any fever or chills. Denies known exposure to COVID-19. Patient reports she has gotten both Pfizer vaccinations in addition to her third booster shot. Patient received her booster on 07/25/2021. Patient reports she also recently underwent carotid Doppler imaging on 08/07/2021 by her PCP for routine maintenance. Review of Systems: Review of Systems: Constitutional: Denies fever or chills Eyes: Denies redness or eye pain HENT: Denies nasal congestion or sore throat Respiratory: Denies cough or shortness of breath Cardiovascular: Denies chest pain or palpitations GI: Denies abdominal pain, nausea, or vomiting : Denies dysuria or hematuria Musculoskeletal: Denies back pain or joint pain Integument: Denies rash or skin lesions Neurologic: Denies headache, focal weakness or sensory changes; reports episode of expressive aphasia now resolved Complete systems were reviewed and found to be within normal limits, except as documented in this note. Heart Score: C/O Chest Pain: N/A Current Medications: Current Medications Medications (Trade) Dose Ordered Sig/Maria Elena Start Time Stop Time Status Last Admin Dose Admin Sodium Chloride 1,000 ml @ 1,000 mls/hr 1X ONCE 08/10/21 12:00 08/10/21 12:59 UNV Allergies: Allergies: Allergies Coded Allergies Type Severity Reaction Last Updated Verified No Known Drug Allergies 05/01/18 No Physical Exam: PE: Constitutional: Well developed, well nourished, no acute distress, non-toxic appearance HENT: Normocephalic, atraumatic Eyes: PERRL, EOMI, conjunctiva normal, no discharge, no nystagmus Neck: Normal range of motion, no tenderness, supple Lungs & Thorax: No respiratory distress, equal chest rise and fall Abdomen: Soft, no tenderness Skin: Warm, dry, no erythema, no rash Extremities: No tenderness, ROM intact, no edema Neurologic: Alert and oriented X 3, normal motor function, normal sensory function, no focal deficits noted Psychologic: Affect normal, judgment normal EKG: EKG: @1200 NSR at 61bpm with wandering baseline, NO ST elevation, hyperacute t waves noted in II-III, aVF, and V4-V6, t wave inversion V1-V2, QRS 76ms, QT/QTc 394/398ms Radiology/Procedures: Radiology/Procedures: PROCEDURE: PORTABLE CHEST 1V XR CHEST 1V History: Cough, expressive aphasia. Comparison: CT abdomen and pelvis 01/05/2013 Technique: Portable AP radiograph of the chest. Findings: The lungs are adequately inflated. Eventration the right diaphragm. Subtle opacity at the left lower lobe is favored to represent extension of mediastinal fat. No pleural effusion or pneumothorax. No significant airspace consolidation. Cardiac silhouette and pulmonary vasculature are within normal limits. Calcification aortic arch. Senescent changes of the spine and shoulders. Impression: 1. No acute cardiopulmonary process. Electronically signed by: Aleksey Iniguez MD (08/10/2021 12:29 PM) [id number] PROCEDURE: CT HEAD WO CONTRAST CT HEAD/BRAIN WO History: Expressive aphasia, now resolved. TIA evaluation. Comparison: None. Technique: Noncontrast CT imaging was performed of the head. Findings: No intracranial hemorrhage. No hydrocephalus. No evidence of acute territorial infarction. Calcifications of the cavernous ICAs. Round 1.9 cm partially calcified mass at the right occiput adjacent to the tentorium and inner table of the occiput posteriorly. Postsurgical changes of the lenses. Orbits are otherwise unremarkable. Imaged paranasal sinuses and mastoid air cells are clear. The scalp and calvarium are unremarkable. Impression: 1. Round partially calcified 1.9 cm extra-axial mass in the occiput likely represents meningioma. Recommend MRI of the brain with contrast for further evaluation. 2. No evidence of hemorrhage, hydrocephalus or territorial infarct. ----- Exposure: One or more of the following individualized dose reduction techniques were utilized for this examination: 1. Automated exposure control 2. Adjustment of the mA and/or kV according to patient size 3. Use of iterative reconstruction technique. Electronically signed by: Aleksey Iniguez MD (08/10/2021 12:33 PM) [id number] Course & Med Decision Making: Course & Med Decision Making Pertinent Labs and Imaging studies reviewed. (See chart for details) Patient presents with report of episode of expressive aphasia which occurred briefly yesterday afternoon without recurrence. Patient takes a 81 mg aspirin daily. Denies trauma. NIHSS 0. CT head with findings of right occipital meningioma measuring less than 2 cm. EKG stable. Labs obtained and posted to chart. AppSurfer review found patient's internal carotid Dopplers with findings of greater than 70% stenosis on the left side. Aspirin provided. Patient requesting discharge home. Discussed case with Bela MANAGER [employer] with Dr. Ly (neurosurgery) regarding meningioma. Dr. Wynn looked at CT imaging and does not feel that this would constitute her symptoms and recommends discussion with neurology. In agreement for outpatient follow-up. Discussed case with Dr. Morse (neurology) who recommends patient be admitted for urgent vascular surgery consultation. Discussed recommendation with patient, who is now in agreement with admission. Patient requiring admission for further evaluation and treatment. Discussed with Dr. Vallecillo (hospitalist) who is in agreement with admission. Discussed case with Dr. Contreras (vascular surgery) who is in agreement with consultation. Discussed findings and plan with patient, who acknowledges understanding and agreement. Ashok Disclaimer: Ashok Disclaimer: This electronic medical record was generated, in whole or in part, using a voice recognition dictation system. Departure Departure Impression: Primary Impression: TIA (transient ischemic attack) Additional Impressions: Carotid artery stenosis, unilateral Meningioma Disposition: ADMITTED INPATIENT Admitting Physician: MARTIN Odell) Condition: STABLE Referrals: TERELL SMITH MD (PCP) NIHSS Stroke Scale NIH Stroke Scale: NIH Stroke Scale Response (Comments) Value Level of Consciousness: 0 Alert/Responsive 0 LOC Questions: 0 Answers both correctly 0 LOC Commands: 0 Performs both tasks 0 Best Gaze: 0 Normal 0 Visual: 0 No visual loss 0 Facial Palsy: 0 Normal, symmetrical 0 Motor - Left Arm 0 No drift 0 Motor - Right Arm 0 No drift 0 Motor - Left Leg 0 No drift 0 Motor: Right Leg 0 No drift 0 Limb Ataxia: 0 Absent 0 Sensory: 0 No loss 0 Best Language: 0 Normal 0 Dysathria: 0 Normal 0 Extinction and Inattention: 0 Normal 0 Total 0 ARMSTRONG,ISABEL Villarreal DO Aug 10, 2021 12:08
[2021-08-10 12:11] LABS: BILIRUBIN,URINE NEGATIVE (NEG); CLARITY,URINE CLEAR; COLOR,URINE YELLOW; NITRITE,URINE NEGATIVE (NEG); PH,URINE 6.5 (<5.0-8.0); PROTEIN,URINE NEGATIVE (NEG-TRACE); UROBILINOGEN,URINE 0.2 mg/dL (0.2 mg/dL)
[2021-08-10 12:24] LABS: BASO # 0.1 x10^3/uL (0.0-0.2); BASO % 1 % (0-3); EOS # 0.2 x10^3/uL (0.0-0.7); EOS % 2 % (0-3); HEMATOCRIT 36.1 % (36.0-47.0); HEMOGLOBIN 12.2 g/dL (12.0-15.5); LYMPH # 1.7 x10^3/uL (1.0-4.8); LYMPH % 20 % (24-48); MEAN CORPUSCULAR HEMOGLOBIN 28 pg (25-35); MEAN CORPUSCULAR HGB CONC 34 g/dL (31-37); MEAN CORPUSCULAR VOLUME 82 fL (79-100); MONO # 0.8 x10^3/uL (0.0-1.1); MONO % 10 % (0-9); NEUT # 5.7 x10^3/uL (1.8-7.7); NEUT % 68 % (31-73); PLATELET COUNT 377 x10^3/uL (140-400); RED BLOOD COUNT 4.41 x10^6/uL (3.50-5.40); RED CELL DISTRIBUTION WIDTH 15.5 % (11.5-14.5); WHITE BLOOD COUNT 8.4 x10^3/uL (4.0-11.0)
[2021-08-10 12:25] LABS: BACTERIA,URINE 0 /HPF (0-FEW); RBC,URINE 0 /HPF (0-2)
--- NOTE | 2021-08-10 12:31 | RAD ---
XR CHEST 1V History: Cough, expressive aphasia. Comparison: CT abdomen and pelvis 01/05/2013 Technique: Portable AP radiograph of the chest. Findings: The lungs are adequately inflated. Eventration the right diaphragm. Subtle opacity at the left lower lobe is favored to represent extension of mediastinal fat. No pleural effusion or pneumothorax. No si gnificant airspace consolidation. Cardiac silhouette and pulmonary vasculature are within normal limi ts. Calcification aortic arch. Senescent changes of the spine and shoulders. Impression: 1. No acute cardiopulmonary process. Electronically signed by: Aleksey Iniguez MD (08/10/2021 12:29 PM) [id number]
--- NOTE | 2021-08-10 12:36 | RAD ---
CT HEAD/BRAIN WO History: Expressive aphasia, now resolved. TIA evaluation. Comparison: None. Technique: Noncontrast CT imaging was performed of the head. Findings: No intracranial hemorrhage. No hydrocephalus. No evidence of acute territorial infarction. Calcifica tions of the cavernous ICAs. Round 1.9 cm partially calcified mass at the right occiput adjacent to t he tentorium and inner table of the occiput posteriorly. Postsurgical changes of the lenses. Orbits are otherwise unremarkable. Imaged paranasal sinuses and m astoid air cells are clear. The scalp and calvarium are unremarkable. Impression: 1. Round partially calcified 1.9 cm extra-axial mass in the occiput likely represents meningioma. Re commend MRI of the brain with contrast for further evaluation. 2. No evidence of hemorrhage, hydrocephalus or territorial infarct. ----- Exposure: One or more of the following individualized dose reduction techniques were utilized for thi s examination: 1. Automated exposure control 2. Adjustment of the mA and/or kV according to patient size 3. Use of iterative reconstruction technique. Electronically signed by: Aleksey Iniguez MD (08/10/2021 12:33 PM) [id number]
[2021-08-10 12:39] LABS: CALCIUM 9.2 mg/dL (8.5-10.1); CREATININE 0.9 mg/dL (0.6-1.0); GFR 60.1; POTASSIUM 4.4 mmol/L (3.5-5.1)
[2021-08-10 12:43] LABS: ALBUMIN 3.5 g/dL (3.4-5.0); ALBUMIN/GLOBULIN RATIO 1.1 (1.0-1.7); MAGNESIUM 2.3 mg/dL (1.8-2.4); TOTAL BILIRUBIN 0.2 mg/dL (0.2-1.0); TOTAL PROTEIN 6.8 g/dL (6.4-8.2)
[2021-08-10 12:47] LABS: CREATINE KINASE 22 U/L (26-192)
[2021-08-10] MEDS ORDERED: ASPIRIN ENTERIC COATED 325 MG TABLET.DR. PO ONE (13:30)
[2021-08-10] MEDS ORDERED: NICOTINE 21MG PATCH. TD ONE (13:30)
--- NOTE | 2021-08-10 14:20 | PDOC2 ---
NEUROLOGY CONSULT Date of Service DOS: DATE: 08/10/21 TIME: 14:10 Reason for Consult Reason for Consult: Melanie Cantor is a pleasant 80-year-old woman who was at a casino on August 09, 2021 when she developed the inability to speak. This lasted about 5-10 minutes and fully resolved. She noted this was associated with a slight headache. She has never had similar symptoms. This was not associated with any numbness or weakness of the extremities. She presented to the emergency room on August 10, 2021. She has not had any further symptoms. While in the emergency room it was noted that she had a recent carotid Doppler which revealed greater than 70% stenosis of the left internal carotid artery. CT scan of the head in the emergency room did not reveal an acute process but did reveal evidence of a 2 cm meningioma of the right occipital lobe. Patient was initially not wanting to stay in the hospital but after discussion she relented and will stay for further investigation and treatment options. She is normally on aspirin at home. She also takes a statin. She is a smoker of 60 years Referring Physician Referring Physician: Avel History of Present Illness Reason for Visit: Transient ischemic attack Past Medical History Cardiovascular: HTN, Hyperlipidemia Psych: Anxiety Musculoskeletal: Osteoarthritis Current Medications Current Medications Current Medications Sodium Chloride 1,000 ml @ 1,000 mls/hr 1X ONCE IV Last administered on 08/10/21at 12:22; Start 08/10/21 at 12:00; Stop 08/10/21 at 12:59; Status DC Nicotine (Nicoderm Cq 21mg) 1 patch 1X ONCE TD Last administered on 08/10/21at 13:43; Start 08/10/21 at 13:30; Stop 08/10/21 at 13:37; Status DC Aspirin (Ecotrin) 325 mg 1X ONCE PO Last administered on 08/10/21at 14:06; Start 08/10/21 at 13:30; Stop 08/10/21 at 13:37; Status DC Active Scripts Active Reported Lovastatin 40 Mg Tablet 1 Tab PO DAILY Alprazolam 0.25 Mg Tablet 0.25 Mg PO DAILY PRN Gabapentin 300 Mg Capsule 300 Mg PO TID Metoprolol Succinate ( Xl ) (Metoprolol Succinate) 25 Mg Tab.er.24h Unknown Dose PO DAILY Aspir-Low (Aspirin) 81 Mg Tablet.dr 1 Tab PO DAILY Calcium (Calcium Carbonate) 600 Mg Tablet Unknown Dose PO Celexa (Citalopram Hydrobromide) 20 Mg Tablet 1 Tab PO DAILY Allergies Allergies: Coded Allergies: No Known Drug Allergies (Unverified , 05/01/18) Physical Exam Physical Examination She was alert, awake and cooperative. Speech was fluent and clear. She had a good fund of recent and remote knowledge. Attention and concentration was intact. She appeared well groomed and well nourished. She was fully oriented. Examination of the cranial nerves revealed visual gordon were full to conf rontation. Extraocular movements were intact. The eyes were conjugate. Pursuit movements were smooth and saccadic eye movements were without dysmetria. Pupils were 3 mm and reactive. Funduscopic exam did not reveal papilledema, exudate or hemorrhage. Facial sensation was intact. The muscles of mastication, and facial expression were powerful symmetrically. Hearing was intact to finger rub bilaterally. The palate arched symmetrically and the tongue was midline with full motion. Sternocleidomastoid and trapezius were powerful bilaterally. Muscle bulk and tone was normal. There was no arm drift or abnormal movements. Power was full and symmetric in the upper and lower extremities. Reflexes were 2/4 and symmetric in the upper and lower extremities. Toes were downgoing bilaterally. Coordination testing with [id number], [id number], fine motor and rapid alternating movements was well performed. Sensory exam was intact to pain, light touch, proprioception, graphesthesia, cold thermal and vibration. There was no extinction to double simultaneous stimulation. Gait was not testable. Auscultation of the carotid arteries revealed a loud left bruit. Heart rhythm was regular without a murmur. Peripheral pulses were symmetric in the hands and feet. There was no edema or cyanosis of the extremities. Vitals VITALS Vital Signs Date Time Temp Pulse Resp B/P (MAP) Pulse Ox O2 Delivery O2 Flow Rate FiO2 08/10/21 11:45 98.7 63 16 158/84 (108) 99 Room Air 98.7 Labs Labs Laboratory Tests Test 08/10/21 11:45 08/10/21 12:10 Urine Collection Type Unknown Urine Color Yellow Urine Clarity Clear Urine pH 6.5 (<5.0-8.0) Urine Specific [place] 1.020 (1.000-1.030) Urine Protein Negative mg/dL (NEG-TRACE) Urine Glucose (UA) Negative mg/dL (NEG) Urine Ketones (Stick) Negative mg/dL (NEG) Urine Blood Negative (NEG) Urine Nitrite Negative (NEG) Urine Bilirubin Negative (NEG) Urine Urobilinogen Dipstick 0.2 mg/dL (0.2 mg/dL) Urine Leukocyte Esterase Small (NEG) Urine RBC 0 /HPF (0-2) Urine WBC 1-4 /HPF (0-4) Urine Squamous Epithelial Cells Few /LPF Urine Bacteria 0 /HPF (0-FEW) White Blood Count 8.4 x10^3/uL (4.0-11.0) Red Blood Count 4.41 x10^6/uL (3.50-5.40) Hemoglobin 12.2 g/dL (12.0-15.5) Hematocrit 36.1 % (36.0-47.0) Mean Corpuscular Volume 82 fL (79-100) Mean Corpuscular Hemoglobin 28 pg (25-35) Mean Corpuscular Hemoglobin Concent 34 g/dL (31-37) Red Cell Distribution Width 15.5 % (11.5-14.5) Platelet Count 377 x10^3/uL (140-400) Neutrophils (%) (Auto) 68 % (31-73) Lymphocytes (%) (Auto) 20 % (24-48) Monocytes (%) (Auto) 10 % (0-9) Eosinophils (%) (Auto) 2 % (0-3) Basophils (%) (Auto) 1 % (0-3) Neutrophils # (Auto) 5.7 x10^3/uL (1.8-7.7) Lymphocytes # (Auto) 1.7 x10^3/uL (1.0-4.8) Monocytes # (Auto) 0.8 x10^3/uL (0.0-1.1) Eosinophils # (Auto) 0.2 x10^3/uL (0.0-0.7) Basophils # (Auto) 0.1 x10^3/uL (0.0-0.2) Sodium Level 142 mmol/L (136-145) Potassium Level 4.4 mmol/L (3.5-5.1) Chloride Level 105 mmol/L (98-107) Carbon Dioxide Level 30 mmol/L (21-32) Anion Gap 7 (6-14) Blood Urea Nitrogen 13 mg/dL (7-20) Creatinine 0.9 mg/dL (0.6-1.0) Estimated GFR (Cockcroft-Gault) 60.1 BUN/Creatinine Ratio 14 (6-20) Glucose Level 81 mg/dL (70-99) Calcium Level 9.2 mg/dL (8.5-10.1) Magnesium Level 2.3 mg/dL (1.8-2.4) Total Bilirubin 0.2 mg/dL (0.2-1.0) Aspartate Amino Transf (AST/SGOT) 21 U/L (15-37) Alanine Aminotransferase (ALT/SGPT) 39 U/L (14-59) Alkaline Phosphatase 77 U/L (46-116) Creatine Kinase 22 U/L (26-192) Creatine Kinase MB (Mass) 1.2 ng/mL (0.0-3.6) Creatine Kinase MB Relative Index % (0-4) Troponin I Quantitative < 0.017 ng/mL (0.000-0.055) Total Protein 6.8 g/dL (6.4-8.2) Albumin 3.5 g/dL (3.4-5.0) Albumin/Globulin Ratio 1.1 (1.0-1.7) Laboratory Tests Test 08/10/21 11:45 08/10/21 12:10 Urine Collection Type Unknown Urine Color Yellow Urine Clarity Clear Urine pH 6.5 (<5.0-8.0) Urine Specific [place] 1.020 (1.000-1.030) Urine Protein Negative mg/dL (NEG-TRACE) Urine Glucose (UA) Negative mg/dL (NEG) Urine Ketones (Stick) Negative mg/dL (NEG) Urine Blood Negative (NEG) Urine Nitrite Negative (NEG) Urine Bilirubin Negative (NEG) Urine Urobilinogen Dipstick 0.2 mg/dL (0.2 mg/dL) Urine Leukocyte Esterase Small (NEG) Urine RBC 0 /HPF (0-2) Urine WBC 1-4 /HPF (0-4) Urine Squamous Epithelial Cells Few /LPF Urine Bacteria 0 /HPF (0-FEW) White Blood Count 8.4 x10^3/uL (4.0-11.0) Red Blood Count 4.41 x10^6/uL (3.50-5.40) Hemoglobin 12.2 g/dL (12.0-15.5) Hematocrit 36.1 % (36.0-47.0) Mean Corpuscular Volume 82 fL (79-100) Mean Corpuscular Hemoglobin 28 pg (25-35) Mean Corpuscular Hemoglobin Concent 34 g/dL (31-37) Red Cell Distribution Width 15.5 % (11.5-14.5) Platelet Count 377 x10^3/uL (140-400) Neutrophils (%) (Auto) 68 % (31-73) Lymphocytes (%) (Auto) 20 % (24-48) Monocytes (%) (Auto) 10 % (0-9) Eosinophils (%) (Auto) 2 % (0-3) Basophils (%) (Auto) 1 % (0-3) Neutrophils # (Auto) 5.7 x10^3/uL (1.8-7.7) Lymphocytes # (Auto) 1.7 x10^3/uL (1.0-4.8) Monocytes # (Auto) 0.8 x10^3/uL (0.0-1.1) Eosinophils # (Auto) 0.2 x10^3/uL (0.0-0.7) Basophils # (Auto) 0.1 x10^3/uL (0.0-0.2) Sodium Level 142 mmol/L (136-145) Potassium Level 4.4 mmol/L (3.5-5.1) Chloride Level 105 mmol/L (98-107) Carbon Dioxide Level 30 mmol/L (21-32) Anion Gap 7 (6-14) Blood Urea Nitrogen 13 mg/dL (7-20) Creatinine 0.9 mg/dL (0.6-1.0) Estimated GFR (Cockcroft-Gault) 60.1 BUN/Creatinine Ratio 14 (6-20) Glucose Level 81 mg/dL (70-99) Calcium Level 9.2 mg/dL (8.5-10.1) Magnesium Level 2.3 mg/dL (1.8-2.4) Total Bilirubin 0.2 mg/dL (0.2-1.0) Aspartate Amino Transf (AST/SGOT) 21 U/L (15-37) Alanine Aminotransferase (ALT/SGPT) 39 U/L (14-59) Alkaline Phosphatase 77 U/L (46-116) Creatine Kinase 22 U/L (26-192) Creatine Kinase MB (Mass) 1.2 ng/mL (0.0-3.6) Creatine Kinase MB Relative Index % (0-4) Troponin I Quantitative < 0.017 ng/mL (0.000-0.055) Total Protein 6.8 g/dL (6.4-8.2) Albumin 3.5 g/dL (3.4-5.0) Albumin/Globulin Ratio 1.1 (1.0-1.7) Images Images CT head without contrast August 10, 2021 Findings: The lungs are adequately inflated. Eventration the right diaphragm. Subtle opacity at the left lower lobe is favored to represent extension of mediastinal fat. No pleural effusion or pneumothorax. No significant airspace consolidation. Cardiac silhouette and pulmonary vasculature are within normal limits. Calcification aortic arch. Senescent changes of the spine and shoulders. Impression: 1. No acute cardiopulmonary process. Assessment/Plan Assessment/Plan Patient is a pleasant 80-year-old woman who had a left hemispheric transient ischemic attack on August 09, 2021 with expressive aphasia lasting 5-10 minutes. Her current neurologic examination was normal. CT scan of the head did not reveal intracranial hemorrhage or stroke but did reveal the possibility of a small meningioma in the right occipital lobe which would not be related to this event. She will be admitted to [facility] for consultation for vascular surgery. She does have a greater than 70% stenosis of the left internal carotid artery which likely contributes to this event. She may require a left carotid endarterectomy in the very near future. Of course she needs to address her other risk factors with smoking cessation. We will need to do a fasting lipid profile to make sure that her current statin is doing a good job. Ultimately it would make sense to add Plavix to the regimen but I would not want to do so at this moment because it could interfere with surgery. She will be closely observed. I appreciate being involved in her care. ERIC LOUIS MD Aug 10, 2021 14:20
--- NOTE | 2021-08-10 14:24 | PDOC1 ---
History and Physical Date of Admission Date of Admission DATE: 08/10/21 TIME: 14:11 Identification/Chief Complaint Chief Complaint Expressive aphasia Source Source: Chart review, Patient History of Present Illness History of Present Illness Patient 80-year-old female with past medical history HTN, HLD, anxiety, overactive bladder, presents to the ED at the behest of her PCP for evaluation of expressive aphasia that occurred yesterday afternoon. [place] been having some difficulty getting her words out. States her symptoms lasted roughly 1015 minutes and then resolved spontaneously. She recently underwent a routine carotid Doppler by her PCP on 08/07/2021 that showed >70% stenosis within the left proximal and mid left cervical internal carotid artery. CT head was obtained that showed round partially calcified 1.9 cm extra-axial mass in the occiput likely represents meningioma. She has been fully vaccinated against COVID-19, as well as receiving her [employer] booster. Given her carotid Doppler findings and recent symptoms, will get patient with neurology consult for further medical management. Past Medical History Past Medical History HTN, HLD, anxiety, overactive bladder Past Surgical History Past Surgical History Hysterectomy, laminectomy, tonsillectomy Family History Family History: Cancer (Colon cancer) Social History Smoke: 1 pack per day ALCOHOL: none Drugs: None Current Problem List Problem List Problems Medical Problems: (1) Carotid artery stenosis, unilateral Status: Acute (2) Meningioma Status: Acute (3) TIA (transient ischemic attack) Status: Acute Current Medications Current Medications Current Medications Sodium Chloride 1,000 ml @ 1,000 mls/hr 1X ONCE IV Last administered on 08/10/21at 12:22; Start 08/10/21 at 12:00; Stop 08/10/21 at 12:59; Status DC Nicotine (Nicoderm Cq 21mg) 1 patch 1X ONCE TD Last administered on 08/10/21at 13:43; Start 08/10/21 at 13:30; Stop 08/10/21 at 13:37; Status DC Aspirin (Ecotrin) 325 mg 1X ONCE PO Last administered on 08/10/21at 14:06; Start 08/10/21 at 13:30; Stop 08/10/21 at 13:37; Status DC Active Scripts Active Reported Lovastatin 40 Mg Tablet 1 Tab PO DAILY Alprazolam 0.25 Mg Tablet 0.25 Mg PO DAILY PRN Gabapentin 300 Mg Capsule 300 Mg PO TID Metoprolol Succinate ( Xl ) (Metoprolol Succinate) 25 Mg Tab.er.24h Unknown Dose PO DAILY Aspir-Low (Aspirin) 81 Mg Tablet.dr 1 Tab PO DAILY Calcium (Calcium Carbonate) 600 Mg Tablet Unknown Dose PO Celexa (Citalopram Hydrobromide) 20 Mg Tablet 1 Tab PO DAILY Allergies Allergies: Coded Allergies: No Known Drug Allergies (Unverified , 05/01/18) ROS Review of System GENERAL: No history of weight change, weakness or fevers. SKIN: No bruising, hair changes or rashes. EYES: No blurred, double or loss of vision. NOSE AND THROAT: No history of nosebleeds, hoarseness or sore throat. HEART: Denies chest pain, denies palpitations. LUNGS: Denies cough, hemoptysis, wheezing or shortness of breath. GASTROINTESTINAL: Denies nausea, vomiting, abdominal pain. GENITOURINARY: Denies dysuria, frequency, urgency, hematuria. NEUROLOGIC: Expressive aphasia. Denies history of numbness, tingling, tremor or weakness. PSYCHIATRIC: Denies anxiety, denies depression. ENDOCRINE: No history of heat or cold intolerance, polyuria or polydipsia. EXTREMITIES: Denies muscle weakness, joint pain, pain on walking or stiffness. Physical Exam Physical Exam General: Alert, Oriented X3, Cooperative, No acute distress HEENT: PERRLA, EOMI Lungs: Clear to auscultation, Normal air movement Heart: RRR, no murmurs Cardiovascular: S1, S2 Abdomen: Normal bowel sounds, Soft, No tenderness Extremities: No clubbing, No cyanosis Skin: No rashes, No significant lesion Neuro: Normal speech, Normal tone, Sensation intact Psych/Mental Status: Mental status NL, Mood NL Vitals Vitals Vital Signs Date Time Temp Pulse Resp B/P (MAP) Pulse Ox O2 Delivery O2 Flow Rate FiO2 08/10/21 11:45 98.7 63 16 158/84 (108) 99 Room Air 98.7 Labs Labs Laboratory Tests Test 08/10/21 11:45 08/10/21 12:10 Urine Collection Type Unknown Urine Color Yellow Urine Clarity Clear Urine pH 6.5 (<5.0-8.0) Urine Specific [place] 1.020 (1.000-1.030) Urine Protein Negative mg/dL (NEG-TRACE) Urine Glucose (UA) Negative mg/dL (NEG) Urine Ketones (Stick) Negative mg/dL (NEG) Urine Blood Negative (NEG) Urine Nitrite Negative (NEG) Urine Bilirubin Negative (NEG) Urine Urobilinogen Dipstick 0.2 mg/dL (0.2 mg/dL) Urine Leukocyte Esterase Small (NEG) Urine RBC 0 /HPF (0-2) Urine WBC 1-4 /HPF (0-4) Urine Squamous Epithelial Cells Few /LPF Urine Bacteria 0 /HPF (0-FEW) White Blood Count 8.4 x10^3/uL (4.0-11.0) Red Blood Count 4.41 x10^6/uL (3.50-5.40) Hemoglobin 12.2 g/dL (12.0-15.5) Hematocrit 36.1 % (36.0-47.0) Mean Corpuscular Volume 82 fL (79-100) Mean Corpuscular Hemoglobin 28 pg (25-35) Mean Corpuscular Hemoglobin Concent 34 g/dL (31-37) Red Cell Distribution Width 15.5 % (11.5-14.5) Platelet Count 377 x10^3/uL (140-400) Neutrophils (%) (Auto) 68 % (31-73) Lymphocytes (%) (Auto) 20 % (24-48) Monocytes (%) (Auto) 10 % (0-9) Eosinophils (%) (Auto) 2 % (0-3) Basophils (%) (Auto) 1 % (0-3) Neutrophils # (Auto) 5.7 x10^3/uL (1.8-7.7) Lymphocytes # (Auto) 1.7 x10^3/uL (1.0-4.8) Monocytes # (Auto) 0.8 x10^3/uL (0.0-1.1) Eosinophils # (Auto) 0.2 x10^3/uL (0.0-0.7) Basophils # (Auto) 0.1 x10^3/uL (0.0-0.2) Sodium Level 142 mmol/L (136-145) Potassium Level 4.4 mmol/L (3.5-5.1) Chloride Level 105 mmol/L (98-107) Carbon Dioxide Level 30 mmol/L (21-32) Anion Gap 7 (6-14) Blood Urea Nitrogen 13 mg/dL (7-20) Creatinine 0.9 mg/dL (0.6-1.0) Estimated GFR (Cockcroft-Gault) 60.1 BUN/Creatinine Ratio 14 (6-20) Glucose Level 81 mg/dL (70-99) Calcium Level 9.2 mg/dL (8.5-10.1) Magnesium Level 2.3 mg/dL (1.8-2.4) Total Bilirubin 0.2 mg/dL (0.2-1.0) Aspartate Amino Transf (AST/SGOT) 21 U/L (15-37) Alanine Aminotransferase (ALT/SGPT) 39 U/L (14-59) Alkaline Phosphatase 77 U/L (46-116) Creatine Kinase 22 U/L (26-192) Creatine Kinase MB (Mass) 1.2 ng/mL (0.0-3.6) Creatine Kinase MB Relative Index % (0-4) Troponin I Quantitative < 0.017 ng/mL (0.000-0.055) Total Protein 6.8 g/dL (6.4-8.2) Albumin 3.5 g/dL (3.4-5.0) Albumin/Globulin Ratio 1.1 (1.0-1.7) Laboratory Tests Test 08/10/21 11:45 08/10/21 12:10 Urine Collection Type Unknown Urine Color Yellow Urine Clarity Clear Urine pH 6.5 (<5.0-8.0) Urine Specific [place] 1.020 (1.000-1.030) Urine Protein Negative mg/dL (NEG-TRACE) Urine Glucose (UA) Negative mg/dL (NEG) Urine Ketones (Stick) Negative mg/dL (NEG) Urine Blood Negative (NEG) Urine Nitrite Negative (NEG) Urine Bilirubin Negative (NEG) Urine Urobilinogen Dipstick 0.2 mg/dL (0.2 mg/dL) Urine Leukocyte Esterase Small (NEG) Urine RBC 0 /HPF (0-2) Urine WBC 1-4 /HPF (0-4) Urine Squamous Epithelial Cells Few /LPF Urine Bacteria 0 /HPF (0-FEW) White Blood Count 8.4 x10^3/uL (4.0-11.0) Red Blood Count 4.41 x10^6/uL (3.50-5.40) Hemoglobin 12.2 g/dL (12.0-15.5) Hematocrit 36.1 % (36.0-47.0) Mean Corpuscular Volume 82 fL (79-100) Mean Corpuscular Hemoglobin 28 pg (25-35) Mean Corpuscular Hemoglobin Concent 34 g/dL (31-37) Red Cell Distribution Width 15.5 % (11.5-14.5) Platelet Count 377 x10^3/uL (140-400) Neutrophils (%) (Auto) 68 % (31-73) Lymphocytes (%) (Auto) 20 % (24-48) Monocytes (%) (Auto) 10 % (0-9) Eosinophils (%) (Auto) 2 % (0-3) Basophils (%) (Auto) 1 % (0-3) Neutrophils # (Auto) 5.7 x10^3/uL (1.8-7.7) Lymphocytes # (Auto) 1.7 x10^3/uL (1.0-4.8) Monocytes # (Auto) 0.8 x10^3/uL (0.0-1.1) Eosinophils # (Auto) 0.2 x10^3/uL (0.0-0.7) Basophils # (Auto) 0.1 x10^3/uL (0.0-0.2) Sodium Level 142 mmol/L (136-145) Potassium Level 4.4 mmol/L (3.5-5.1) Chloride Level 105 mmol/L (98-107) Carbon Dioxide Level 30 mmol/L (21-32) Anion Gap 7 (6-14) Blood Urea Nitrogen 13 mg/dL (7-20) Creatinine 0.9 mg/dL (0.6-1.0) Estimated GFR (Cockcroft-Gault) 60.1 BUN/Creatinine Ratio 14 (6-20) Glucose Level 81 mg/dL (70-99) Calcium Level 9.2 mg/dL (8.5-10.1) Magnesium Level 2.3 mg/dL (1.8-2.4) Total Bilirubin 0.2 mg/dL (0.2-1.0) Aspartate Amino Transf (AST/SGOT) 21 U/L (15-37) Alanine Aminotransferase (ALT/SGPT) 39 U/L (14-59) Alkaline Phosphatase 77 U/L (46-116) Creatine Kinase 22 U/L (26-192) Creatine Kinase MB (Mass) 1.2 ng/mL (0.0-3.6) Creatine Kinase MB Relative Index % (0-4) Troponin I Quantitative < 0.017 ng/mL (0.000-0.055) Total Protein 6.8 g/dL (6.4-8.2) Albumin 3.5 g/dL (3.4-5.0) Albumin/Globulin Ratio 1.1 (1.0-1.7) Images Images [facility] [address] [place] [address] IMAGING REPORT Signed PATIENT: PALLAVI CRAIG AACCOUNT: [id number] : 1940 LOCATION: [facility] AGE: 80 SEX: F EXAM STATUS: REG CLI ORD. PHYSICIAN: TERELL SMITH MD REASON: BILATERIAL CAROTID ARTERY DISEASE PROCEDURE: DOPPLER CAROTID BILAT EXAM: CAROTID DOPPLER SONOGRAM. HISTORY: Carotid stenosis, smoking history, hypertension. TECHNIQUE: Jimenez scale and color Doppler sonographic evaluation of the neck with spectral waveform analysis was performed and static images are submitted for review. FINDINGS: RIGHT: The peak systolic velocity within the common carotid artery is 71 cm/sec. The peak systolic velocity within the internal carotid artery is 102 cm/sec and the end diastolic velocity within the internal carotid artery is 31 cm/sec. The ICA/CCA ratio is 1.1. Grayscale images demonstrate no grayscale stenosis. LEFT: The peak systolic velocity within the common carotid artery is 38 cm/sec. The peak systolic velocity within the internal carotid artery is 471 cm/sec and the end diastolic velocity within the internal carotid artery is 164 cm/sec. The ICA/CCA ratio is 7.8. Grayscale images demonstrate no grayscale stenosis. There is antegrade flow within both vertebral arteries. IMPRESSION: 1. >70% stenosis within the left proximal and mid left cervical internal carotid artery. [facility] [address] [place] [address] IMAGING REPORT Signed PATIENT: PALLAVI CRAIG AACCOUNT: [id number] : 1940 LOCATION: ER AGE: 80 SEX: F EXAM STATUS: PRE ER ORD. PHYSICIAN: ISABEL ARMSTRONG DO REASON: expressive aphasia now resolved, TIA evaluation PROCEDURE: CT HEAD WO CONTRAST CT HEAD/BRAIN WO History: Expressive aphasia, now resolved. TIA evaluation. Comparison: None. Technique: Noncontrast CT imaging was performed of the head. Findings: No intracranial hemorrhage. No hydrocephalus. No evidence of acute territorial infarction. Calcifications of the cavernous ICAs. Round 1.9 cm partially calcified mass at the right occiput adjacent to the tentorium and inner table of the occiput posteriorly. Postsurgical changes of the lenses. Orbits are otherwise unremarkable. Imaged paranasal sinuses and mastoid air cells are clear. The scalp and calvarium are unremarkable. Impression: 1. Round partially calcified 1.9 cm extra-axial mass in the occiput likely represents meningioma. Recommend MRI of the brain with contrast for further eval uation. 2. No evidence of hemorrhage, hydrocephalus or territorial infarct. VTE Prophylaxis Ordered VTE Prophylaxis Devices: No VTE Pharmacological Prophylaxi: Yes Assessment/Plan Assessment/Plan TIA 1.9 cm extra-axial mass, likely representing meningioma HTN HLD Anxiety Overactive bladder Plan: Consultation placed to neurology Consultation placed to vascular surgery Would likely benefit from carotid stent given recent findings and symptoms Will obtain lipid panel ER physician discussed CT head findings with on-call neurosurgeon, who believes this is unlikely cause of her symptoms. Recommend outpatient MRI of the brain with contrast for further evaluation. Resume home medications FEN - Cardiac diet PPX - Heparin FULL CODE Dispo - inpatient for above Patient names her daughter (Frida Rojas) as surrogate decision-maker Justifications for Admission Other Justification MICHELINE CAN MD Aug 10, 2021 14:24
[2021-08-10] MEDS ORDERED: ZOLPIDEM 5 MG TABLET. PO PRN (14:30)
[2021-08-10] MEDS ORDERED: IBUPROFEN 400 MG TABLET. PO PRN (14:30)
[2021-08-10] MEDS ORDERED: traMADol 50 MG TABLET PO PRN (14:30)
[2021-08-10] MEDS ORDERED: MAG HYDROX/ALUMINUM HYD/SIMETH 30 ML ORAL.SUSP PO PRN (14:30)
[2021-08-10] MEDS ORDERED: ONDANSETRON PF 4 MG/2 ML VIAL. IVP PRN (14:30)
[2021-08-10] MEDS ORDERED: hydrALAZINE 20 MG/ML VIAL. IVP PRN (14:30)
[2021-08-10] MEDS ORDERED: ACETAMINOPHEN 325 MG TABLET. PO PRN (14:30)
[2021-08-10] MEDS ORDERED: MAGNESIUM HYDROXIDE 2,400 MG/30 ML ORAL.SUSP. PO PRN (14:30)
[2021-08-10] MEDS ORDERED: ALPRAZolam 0.25 MG TABLET PO PRN (14:30)
[2021-08-10] MEDS ORDERED: CALCIUM CARBONATE 500 MG TAB.CHEW PO PRN (14:30)
[2021-08-10] MEDS ORDERED: GABAPENTIN 300 MG CAPSULE. PO SCH (15:00)
[2021-08-10] MEDS ORDERED: HEPARIN for SUB-Q USE 5,000 UNIT/ML VIAL. SQ SCH (15:00)
[2021-08-10 15:17] VITALS: BP 148/70
[2021-08-10] MEDS ORDERED: IOHEXOL 350 MG/ML 100 ML VIAL. IV ONE (15:30)
[2021-08-10] MEDS ORDERED: CONTRAST GIVEN. MC PRN (16:00)
--- NOTE | 2021-08-10 16:12 | PDOC3 ---
Discharge Summary Visit Information Date of Admission: Aug 10, 2021 Date of Discharge: Aug 10, 2021 Final Diagnosis Problems Medical Problems: (1) Carotid artery stenosis, unilateral Status: Acute (2) Meningioma Status: Acute (3) TIA (transient ischemic attack) Status: Acute Brief Hospital Course Allergies Allergies Coded Allergies Type Severity Reaction Last Updated Verified No Known Drug Allergies 05/01/18 No Vital Signs Vital Signs Date Time Temp Pulse Resp B/P (MAP) Pulse Ox O2 Delivery O2 Flow Rate FiO2 08/10/21 11:45 98.7 63 16 158/84 (108) 99 Room Air 98.7 Lab Results Laboratory Tests Test 08/10/21 11:45 08/10/21 12:10 Urine Collection Type Unknown Urine Color Yellow Urine Clarity Clear Urine pH 6.5 (<5.0-8.0) Urine Specific [place] 1.020 (1.000-1.030) Urine Protein Negative mg/dL (NEG-TRACE) Urine Glucose (UA) Negative mg/dL (NEG) Urine Ketones (Stick) Negative mg/dL (NEG) Urine Blood Negative (NEG) Urine Nitrite Negative (NEG) Urine Bilirubin Negative (NEG) Urine Urobilinogen Dipstick 0.2 mg/dL (0.2 mg/dL) Urine Leukocyte Esterase Small (NEG) Urine RBC 0 /HPF (0-2) Urine WBC 1-4 /HPF (0-4) Urine Squamous Epithelial Cells Few /LPF Urine Bacteria 0 /HPF (0-FEW) White Blood Count 8.4 x10^3/uL (4.0-11.0) Red Blood Count 4.41 x10^6/uL (3.50-5.40) Hemoglobin 12.2 g/dL (12.0-15.5) Hematocrit 36.1 % (36.0-47.0) Mean Corpuscular Volume 82 fL (79-100) Mean Corpuscular Hemoglobin 28 pg (25-35) Mean Corpuscular Hemoglobin Concent 34 g/dL (31-37) Red Cell Distribution Width 15.5 % (11.5-14.5) Platelet Count 377 x10^3/uL (140-400) Neutrophils (%) (Auto) 68 % (31-73) Lymphocytes (%) (Auto) 20 % (24-48) Monocytes (%) (Auto) 10 % (0-9) Eosinophils (%) (Auto) 2 % (0-3) Basophils (%) (Auto) 1 % (0-3) Neutrophils # (Auto) 5.7 x10^3/uL (1.8-7.7) Lymphocytes # (Auto) 1.7 x10^3/uL (1.0-4.8) Monocytes # (Auto) 0.8 x10^3/uL (0.0-1.1) Eosinophils # (Auto) 0.2 x10^3/uL (0.0-0.7) Basophils # (Auto) 0.1 x10^3/uL (0.0-0.2) Sodium Level 142 mmol/L (136-145) Potassium Level 4.4 mmol/L (3.5-5.1) Chloride Level 105 mmol/L (98-107) Carbon Dioxide Level 30 mmol/L (21-32) Anion Gap 7 (6-14) Blood Urea Nitrogen 13 mg/dL (7-20) Creatinine 0.9 mg/dL (0.6-1.0) Estimated GFR (Cockcroft-Gault) 60.1 BUN/Creatinine Ratio 14 (6-20) Glucose Level 81 mg/dL (70-99) Calcium Level 9.2 mg/dL (8.5-10.1) Magnesium Level 2.3 mg/dL (1.8-2.4) Total Bilirubin 0.2 mg/dL (0.2-1.0) Aspartate Amino Transf (AST/SGOT) 21 U/L (15-37) Alanine Aminotransferase (ALT/SGPT) 39 U/L (14-59) Alkaline Phosphatase 77 U/L (46-116) Creatine Kinase 22 U/L (26-192) Creatine Kinase MB (Mass) 1.2 ng/mL (0.0-3.6) Creatine Kinase MB Relative Index % (0-4) Troponin I Quantitative < 0.017 ng/mL (0.000-0.055) Total Protein 6.8 g/dL (6.4-8.2) Albumin 3.5 g/dL (3.4-5.0) Albumin/Globulin Ratio 1.1 (1.0-1.7) Laboratory Tests Test 08/10/21 11:45 08/10/21 12:10 Urine Collection Type Unknown Urine Color Yellow Urine Clarity Clear Urine pH 6.5 (<5.0-8.0) Urine Specific [place] 1.020 (1.000-1.030) Urine Protein Negative mg/dL (NEG-TRACE) Urine Glucose (UA) Negative mg/dL (NEG) Urine Ketones (Stick) Negative mg/dL (NEG) Urine Blood Negative (NEG) Urine Nitrite Negative (NEG) Urine Bilirubin Negative (NEG) Urine Urobilinogen Dipstick 0.2 mg/dL (0.2 mg/dL) Urine Leukocyte Esterase Small (NEG) Urine RBC 0 /HPF (0-2) Urine WBC 1-4 /HPF (0-4) Urine Squamous Epithelial Cells Few /LPF Urine Bacteria 0 /HPF (0-FEW) White Blood Count 8.4 x10^3/uL (4.0-11.0) Red Blood Count 4.41 x10^6/uL (3.50-5.40) Hemoglobin 12.2 g/dL (12.0-15.5) Hematocrit 36.1 % (36.0-47.0) Mean Corpuscular Volume 82 fL (79-100) Mean Corpuscular Hemoglobin 28 pg (25-35) Mean Corpuscular Hemoglobin Concent 34 g/dL (31-37) Red Cell Distribution Width 15.5 % (11.5-14.5) Platelet Count 377 x10^3/uL (140-400) Neutrophils (%) (Auto) 68 % (31-73) Lymphocytes (%) (Auto) 20 % (24-48) Monocytes (%) (Auto) 10 % (0-9) Eosinophils (%) (Auto) 2 % (0-3) Basophils (%) (Auto) 1 % (0-3) Neutrophils # (Auto) 5.7 x10^3/uL (1.8-7.7) Lymphocytes # (Auto) 1.7 x10^3/uL (1.0-4.8) Monocytes # (Auto) 0.8 x10^3/uL (0.0-1.1) Eosinophils # (Auto) 0.2 x10^3/uL (0.0-0.7) Basophils # (Auto) 0.1 x10^3/uL (0.0-0.2) Sodium Level 142 mmol/L (136-145) Potassium Level 4.4 mmol/L (3.5-5.1) Chloride Level 105 mmol/L (98-107) Carbon Dioxide Level 30 mmol/L (21-32) Anion Gap 7 (6-14) Blood Urea Nitrogen 13 mg/dL (7-20) Creatinine 0.9 mg/dL (0.6-1.0) Estimated GFR (Cockcroft-Gault) 60.1 BUN/Creatinine Ratio 14 (6-20) Glucose Level 81 mg/dL (70-99) Calcium Level 9.2 mg/dL (8.5-10.1) Magnesium Level 2.3 mg/dL (1.8-2.4) Total Bilirubin 0.2 mg/dL (0.2-1.0) Aspartate Amino Transf (AST/SGOT) 21 U/L (15-37) Alanine Aminotransferase (ALT/SGPT) 39 U/L (14-59) Alkaline Phosphatase 77 U/L (46-116) Creatine Kinase 22 U/L (26-192) Creatine Kinase MB (Mass) 1.2 ng/mL (0.0-3.6) Creatine Kinase MB Relative Index % (0-4) Troponin I Quantitative < 0.017 ng/mL (0.000-0.055) Total Protein 6.8 g/dL (6.4-8.2) Albumin 3.5 g/dL (3.4-5.0) Albumin/Globulin Ratio 1.1 (1.0-1.7) Brief Hospital Course Ms. Cantor is a 80 old female who presented with TIA. She recently underwent a routine carotid Doppler by her PCP on 08/07/2021 that showed >70% stenosis withi n the left proximal and mid left cervical internal carotid artery. Consultation placed to neurosurgery and vascular surgery.Had abnormal EKG showing A. fib/flutter. She will require evaluation by cardiology prior to planed carotid stent. Patient decided that she would prefer to leave AMA and be seen at [place] where she has family friends and to continue work-up closer to her home. Discussed risks of leaving AMA, including life-threatening or fatal stroke. Patient ANO x3 and understands these risks, but still prefers to leave AMA. Discharge Information Condition at Discharge: Comment (Patient left AMA) Disposition/Orders: Other (Patient left AMA) Scheduled Aspirin (Aspir-Low) 81 Mg Tablet.dr, 1 TAB PO DAILY, #30 Ref 3 (Reported) Entered as Reported by: CARLINE FLEMING on 06/30/18946 Last Action: Continued on 08/10/211425 by MICHELINE CAN MD Citalopram Hydrobromide (Celexa) 20 Mg Tablet, 1 TAB PO DAILY, #90 Ref 3 (Reported) Entered as Reported by: CARLINE FLEMING on 06/30/18946 Last Action: Continued on 08/10/211425 by MICHELINE CAN MD Gabapentin (Gabapentin ) 300 Mg Capsule, 300 MG PO TID, (Reported) Entered as Reported by: CARLINE FLEMING on 06/30/18946 Last Action: Continued on 08/10/211425 by MICHELINE CAN MD Lovastatin (Lovastatin) 40 Mg Tablet, 1 TAB PO DAILY, #30 Ref 5 (Reported) Entered as Reported by: CARLINE FLEMING on 06/30/18946 Last Action: Converted on 08/10/211425 by MICHELINE CAN MD Metoprolol Succinate (Metoprolol Succinate ( Xl )) 25 Mg Tab.er.24h, Unknown Dose PO DAILY for FOR HYPERTENSION, #30 Ref 0 (Reported) Entered as Reported by: CARLINE FLEMING on 06/30/18946 Last Action: Continued on 08/10/211425 by MICHELINE CAN MD Scheduled PRN Alprazolam (Alprazolam) 0.25 Mg Tablet, 0.25 MG PO DAILY PRN for ANXIETY / AGITATION, Ref 0 (Reported) Entered as Reported by: CARLINE FLEMING on 06/30/18946 Last Action: Continued on 08/10/211425 by MICHELINE CAN MD Miscellaneous Medications Calcium Carbonate (Calcium) 600 Mg Tablet, Unknown Dose PO, (Reported) Entered as Reported by: CARLINE FLEMING on 06/30/18946 Justicifation of Admission Dx: Justifications for Admission: Justification of Admission Dx: Yes MICHELINE CAN MD Aug 10, 2021 16:12
--- NOTE | 2021-08-10 16:20 | PDOC2 ---
CONSULT Date of Service Date of Service DATE: 08/10/21 TIME: 16:02 Reason for Consult Reason for Consult: TIA, symtpomatic left ICA stenosis Referring Physician Referring Physician: Dr Marino Identification/Chief Complaint Chief Complaint Speech disturbance Source Source: Patient History of Present Illness Reason for Visit: This is an 80-year-old female who presents to the ER today after having an episode of approximately 5 to 10 minutes where she was confusing her speech and unable to coordinate her speech. She denies any weakness, numbness or tingling at the time of the event. She recently had a carotid ultrasound performed for surveillance purposes on Thursday which demonstrated a severe stenosis of the left internal carotid artery however the distal internal carotid artery is not visualized to be normal. She has had no previous strokes or TIA symptoms has had no previous heart attacks or and denies any history of angina. She is able to be active performing more than 4 METS able to walk stairs and walk on a golf course without any dyspnea on exertion or angina. With ambulation she is somewhat limited with knee pain on the left side. She denies any history of neck surgery or radiation. Past Medical History Cardiovascular: HTN, Hyperlipidemia Psych: Anxiety Musculoskeletal: Osteoarthritis Past Surgical History Past Surgical History No prior neck surgeries. Family History Family History: Cancer (Colon cancer) Social History 1 pack per day ALCOHOL: none Drugs: None Current Problem List Problem List Problems Medical Problems: (1) Carotid artery stenosis, unilateral Status: Acute (2) Meningioma Status: Acute (3) TIA (transient ischemic attack) Status: Acute Current Medications Current Medications Current Medications Sodium Chloride 1,000 ml @ 1,000 mls/hr 1X ONCE IV Last administered on 08/10/21at 12:22; Start 08/10/21 at 12:00; Stop 08/10/21 at 12:59; Status DC Nicotine (Nicoderm Cq 21mg) 1 patch 1X ONCE TD Last administered on 08/10/21at 13:43; Start 08/10/21 at 13:30; Stop 08/10/21 at 13:37; Status DC Aspirin (Ecotrin) 325 mg 1X ONCE PO Last administered on 08/10/21at 14:06; Start 08/10/21 at 13:30; Stop 08/10/21 at 13:37; Status DC Nicotine (Nicoderm Cq 21mg) 1 patch PRN DAILY PRN TD SMOKING CESSATION; Start 08/11/21 at 09:00 Alprazolam (Xanax) 0.25 mg DAILY PRN PO ANXIETY / AGITATION; Start 08/10/21 at 14:30 Aspirin (Ecotrin) 81 mg DAILY PO ; Start 08/11/21 at 09:00 Citalopram Hydrobromide (CeleXA) 20 mg DAILY PO ; Start 08/11/21 at 09:00 Gabapentin (Neurontin) 300 mg TID PO ; Start 08/10/21 at 15:00 Atorvastatin Calcium (Lipitor) 10 mg QHS PO ; Start 08/10/21 at 21:00 Metoprolol Succinate (Toprol Xl) 25 mg DAILY PO ; Start 08/11/21 at 09:00 Hydralazine HCl (Apresoline Inj) 10 mg PRN Q4HRS PRN IVP HYPERTENSION; Start 08/10/21 at 14:30 Ondansetron HCl (Zofran) 4 mg PRN Q6HRS PRN IVP NAUSEA/VOMITING; Start 08/10/21 at 14:30 Al Hydroxide/Mg Hydroxide (Mylanta Plus Xs) 30 ml PRN Q3HRS PRN PO HEARTBURN / GAS; Start 08/10/21 at 14:30 Calcium Carbonate/ Glycine (Tums) 500 mg PRN Q3HRS PRN PO UPSET STOMACH; Start 08/10/21 at 14:30 Zolpidem Tartrate (Ambien) 5 mg PRN QHS PRN PO INSOMNIA, MAY REPEAT IN 1HR; Start 08/10/21 at 14:30 Acetaminophen (Tylenol) 650 mg PRN Q6HRS PRN PO Headaches, Temp > 101.5F; Start 08/10/21 at 14:30 Ibuprofen (Motrin) 400 mg PRN Q6HRS PRN PO MILD PAIN 1-3; Start 08/10/21 at 14:30 Magnesium Hydroxide (Milk Of Magnesia) 2,400 mg PRN Q12HR PRN PO CONSTIPATION; Start 08/10/21 at 14:30 Heparin Sodium (Porcine) (Heparin Sodium) 5,000 unit Q12HR SQ ; Start 08/10/21 at 15:00 Tramadol HCl (Ultram) 50 mg PRN Q6HRS PRN PO MILD TO MODERATE PAIN; Start 08/10/21 at 14:30 Iohexol (Omnipaque 350 Mg/ml) 90 ml 1X ONCE IV ; Start 08/10/21 at 15:30; Stop 08/10/21 at 15:53; Status DC Info (CONTRAST GIVEN -- Rx MONITORING) 1 each PRN DAILY PRN MC SEE COMMENTS; Start 08/10/21 at 16:00; Stop 08/12/21 at 15:59 Active Scripts Active Reported Lovastatin 40 Mg Tablet 1 Tab PO DAILY Alprazolam 0.25 Mg Tablet 0.25 Mg PO DAILY PRN Gabapentin (Gabapentin) 300 Mg Capsule 300 Mg PO TID Metoprolol Succinate ( Xl ) (Metoprolol Succinate) 25 Mg Tab.er.24h Unknown Dose PO DAILY Aspir-Low (Aspirin) 81 Mg Tablet.dr 1 Tab PO DAILY Calcium (Calcium Carbonate) 600 Mg Tablet Unknown Dose PO Celexa (Citalopram Hydrobromide) 20 Mg Tablet 1 Tab PO DAILY Allergies Allergies: Coded Allergies: No Known Drug Allergies (Unverified , 05/01/18) ROS General: No: Chills, Night Sweats PSYCHOLOGICAL ROS: No: Anxiety, Disorientation Eyes: No Blurry vision, No Decreased vision, No Double vision HEENT: No: Heacaches, Visual Changes ALLERGY AND IMMUNOLOGY: No: Hives Hematological and Lymphatic: No: Swollen Lymph Nodes ENDOCRINE: No: Palpitations, Polydipsia/polyuria Respiratory: No: Cough, Hemoptysis Cardiovascular: No Chest Pain, No Palpitations Gastrointestinal: No Nausea, No Vomiting Musculoskeletal: Yes Joint Pain, Yes Joint Stiffness Neurological: Yes Speech Problems; No Confusion Skin: No Eczema, No Hair Changes Physical Exam General: Alert, Oriented X3 HEENT: Atraumatic, EOMI Lungs: Clear to auscultation, Normal air movement Heart: Regular rate, No murmurs Abdomen: Soft, No tenderness, No masses Extremities: Other (2+ radial pulses bilaterally) Skin: No rashes, No breakdown Neuro: Normal speech, Strength at 5/5 X4 ext MUSCULOSKELETAL: No deformity, No swelling, Other (normal cervical range of motion) Vitals VITALS Vital Signs Date Time Temp Pulse Resp B/P (MAP) Pulse Ox O2 Delivery O2 Flow Rate FiO2 08/10/21 11:45 98.7 63 16 158/84 (108) 99 Room Air 98.7 Labs Labs Laboratory Tests Test 08/10/21 11:45 08/10/21 12:10 Urine Collection Type Unknown Urine Color Yellow Urine Clarity Clear Urine pH 6.5 (<5.0-8.0) Urine Specific [place] 1.020 (1.000-1.030) Urine Protein Negative mg/dL (NEG-TRACE) Urine Glucose (UA) Negative mg/dL (NEG) Urine Ketones (Stick) Negative mg/dL (NEG) Urine Blood Negative (NEG) Urine Nitrite Negative (NEG) Urine Bilirubin Negative (NEG) Urine Urobilinogen Dipstick 0.2 mg/dL (0.2 mg/dL) Urine Leukocyte Esterase Small (NEG) Urine RBC 0 /HPF (0-2) Urine WBC 1-4 /HPF (0-4) Urine Squamous Epithelial Cells Few /LPF Urine Bacteria 0 /HPF (0-FEW) White Blood Count 8.4 x10^3/uL (4.0-11.0) Red Blood Count 4.41 x10^6/uL (3.50-5.40) Hemoglobin 12.2 g/dL (12.0-15.5) Hematocrit 36.1 % (36.0-47.0) Mean Corpuscular Volume 82 fL (79-100) Mean Corpuscular Hemoglobin 28 pg (25-35) Mean Corpuscular Hemoglobin Concent 34 g/dL (31-37) Red Cell Distribution Width 15.5 % (11.5-14.5) Platelet Count 377 x10^3/uL (140-400) Neutrophils (%) (Auto) 68 % (31-73) Lymphocytes (%) (Auto) 20 % (24-48) Monocytes (%) (Auto) 10 % (0-9) Eosinophils (%) (Auto) 2 % (0-3) Basophils (%) (Auto) 1 % (0-3) Neutrophils # (Auto) 5.7 x10^3/uL (1.8-7.7) Lymphocytes # (Auto) 1.7 x10^3/uL (1.0-4.8) Monocytes # (Auto) 0.8 x10^3/uL (0.0-1.1) Eosinophils # (Auto) 0.2 x10^3/uL (0.0-0.7) Basophils # (Auto) 0.1 x10^3/uL (0.0-0.2) Sodium Level 142 mmol/L (136-145) Potassium Level 4.4 mmol/L (3.5-5.1) Chloride Level 105 mmol/L (98-107) Carbon Dioxide Level 30 mmol/L (21-32) Anion Gap 7 (6-14) Blood Urea Nitrogen 13 mg/dL (7-20) Creatinine 0.9 mg/dL (0.6-1.0) Estimated GFR (Cockcroft-Gault) 60.1 BUN/Creatinine Ratio 14 (6-20) Glucose Level 81 mg/dL (70-99) Calcium Level 9.2 mg/dL (8.5-10.1) Magnesium Level 2.3 mg/dL (1.8-2.4) Total Bilirubin 0.2 mg/dL (0.2-1.0) Aspartate Amino Transf (AST/SGOT) 21 U/L (15-37) Alanine Aminotransferase (ALT/SGPT) 39 U/L (14-59) Alkaline Phosphatase 77 U/L (46-116) Creatine Kinase 22 U/L (26-192) Creatine Kinase MB (Mass) 1.2 ng/mL (0.0-3.6) Creatine Kinase MB Relative Index % (0-4) Troponin I Quantitative < 0.017 ng/mL (0.000-0.055) Total Protein 6.8 g/dL (6.4-8.2) Albumin 3.5 g/dL (3.4-5.0) Albumin/Globulin Ratio 1.1 (1.0-1.7) Laboratory Tests Test 08/10/21 11:45 08/10/21 12:10 Urine Collection Type Unknown Urine Color Yellow Urine Clarity Clear Urine pH 6.5 (<5.0-8.0) Urine Specific [place] 1.020 (1.000-1.030) Urine Protein Negative mg/dL (NEG-TRACE) Urine Glucose (UA) Negative mg/dL (NEG) Urine Ketones (Stick) Negative mg/dL (NEG) Urine Blood Negative (NEG) Urine Nitrite Negative (NEG) Urine Bilirubin Negative (NEG) Urine Urobilinogen Dipstick 0.2 mg/dL (0.2 mg/dL) Urine Leukocyte Esterase Small (NEG) Urine RBC 0 /HPF (0-2) Urine WBC 1-4 /HPF (0-4) Urine Squamous Epithelial Cells Few /LPF Urine Bacteria 0 /HPF (0-FEW) White Blood Count 8.4 x10^3/uL (4.0-11.0) Red Blood Count 4.41 x10^6/uL (3.50-5.40) Hemoglobin 12.2 g/dL (12.0-15.5) Hematocrit 36.1 % (36.0-47.0) Mean Corpuscular Volume 82 fL (79-100) Mean Corpuscular Hemoglobin 28 pg (25-35) Mean Corpuscular Hemoglobin Concent 34 g/dL (31-37) Red Cell Distribution Width 15.5 % (11.5-14.5) Platelet Count 377 x10^3/uL (140-400) Neutrophils (%) (Auto) 68 % (31-73) Lymphocytes (%) (Auto) 20 % (24-48) Monocytes (%) (Auto) 10 % (0-9) Eosinophils (%) (Auto) 2 % (0-3) Basophils (%) (Auto) 1 % (0-3) Neutrophils # (Auto) 5.7 x10^3/uL (1.8-7.7) Lymphocytes # (Auto) 1.7 x10^3/uL (1.0-4.8) Monocytes # (Auto) 0.8 x10^3/uL (0.0-1.1) Eosinophils # (Auto) 0.2 x10^3/uL (0.0-0.7) Basophils # (Auto) 0.1 x10^3/uL (0.0-0.2) Sodium Level 142 mmol/L (136-145) Potassium Level 4.4 mmol/L (3.5-5.1) Chloride Level 105 mmol/L (98-107) Carbon Dioxide Level 30 mmol/L (21-32) Anion Gap 7 (6-14) Blood Urea Nitrogen 13 mg/dL (7-20) Creatinine 0.9 mg/dL (0.6-1.0) Estimated GFR (Cockcroft-Gault) 60.1 BUN/Creatinine Ratio 14 (6-20) Glucose Level 81 mg/dL (70-99) Calcium Level 9.2 mg/dL (8.5-10.1) Magnesium Level 2.3 mg/dL (1.8-2.4) Total Bilirubin 0.2 mg/dL (0.2-1.0) Aspartate Amino Transf (AST/SGOT) 21 U/L (15-37) Alanine Aminotransferase (ALT/SGPT) 39 U/L (14-59) Alkaline Phosphatase 77 U/L (46-116) Creatine Kinase 22 U/L (26-192) Creatine Kinase MB (Mass) 1.2 ng/mL (0.0-3.6) Creatine Kinase MB Relative Index % (0-4) Troponin I Quantitative < 0.017 ng/mL (0.000-0.055) Total Protein 6.8 g/dL (6.4-8.2) Albumin 3.5 g/dL (3.4-5.0) Albumin/Globulin Ratio 1.1 (1.0-1.7) Images Images Carotid ultrasound reviewed demonstrates severe stenosis of the left ICA Assessment/Plan Assessment/Plan 1. Abnormal EKG with a flutter and peaked t waves 2. Symptomatic left internal carotid artery stenosis with TIA 3. HTN 4. tobacco abuse Will obtain CTA neck as preoperative evaluation for left carotid endarterectomy. Given abnormal EKG will ask cardiology for evaluation for preoperative cardiac optimization. Continue aspirin and statin (would change to high intensity statin- 80 mg atorvastatin) and target normotension. Discussed risks, benefits, and alternatives to carotid endarterectomy. Discussed risk of stroke, cranial nerve injury, infeciton and hematoma and need for usp surveillance. Recommend tobacco cessation Patient ultimately elected to seek care elsewhere per her preferences. Will contact early this week to ensure she has undergone further evaluation and treatment. ANNELIESE PEREIRA MD Aug 10, 2021 16:20
--- NOTE | 2021-08-10 16:53 | EKG ---
[facility] [address] [place] [address] Test Date: 2021-08-10 Test Time: 12:00:34 Pat Name: PALLAVI CRAIG Department: Room: Gender: F Postal Clerk: : [id number] Requested By: ISABEL ARMSTRONG Order Number: [id number] Reading MD: Baudilio Herrmann MD Measurements Intervals [place] Rate: 61 P: MS: QRS: 41 QRSD: 76 T: 70 QT: 394 QTc: 398 Interpretive Statements SINUS RHYTHM NON-SPECIFIC ST/T CHANGES Electronically Signed On 08-11-2021 1:41:40 CDT by Baudilio Herrmann MD
[2021-08-10] MEDS ORDERED: ATORVASTATIN CALCIUM 10 MG TABLET. PO SCH (21:00)
[2021-08-11] MEDS ORDERED: CITALOPRAM 20 MG TABLET. PO SCH (09:00)
[2021-08-11] MEDS ORDERED: NICOTINE 21MG PATCH. TD PRN (09:00)
[2021-08-11] MEDS ORDERED: ASPIRIN ENTERIC COATED 81 MG TABLET.DR. PO SCH (09:00)
[2021-08-11] MEDS ORDERED: METOPROLOL SUCC 24HR ER 25 MG TAB.ER.24H. PO SCH (09:00)
== END 2021-08-10 16:05 | disposition left against medical advice (07) ==
LOC: ER 11:42 → UNDOADMIN 13:34 → 5 SOUTH 13:34 → ER 16:05
DX: G45.9 Transient cerebral ischemic attack, unspecified (principal); D32.9 Benign neoplasm of meninges, unspecified; I10 Essential (primary) hypertension; E78.00 Pure hypercholesterolemia, unspecified; F17.200 Nicotine dependence, unspecified, uncomplicated; Z90.710 Acquired absence of both cervix and uterus
CPT/HCPCS: 36415; 70450; 71045; 80053; 81001; 82553; 83735; 84484; 85025; 87086; 93005; 96360; 99285; J7030

== ENCOUNTER → 2021-09-10 | Outpatient (CLI) | payer MEDICARE ==
--- NOTE | 2021-09-10 11:33 | KCIC ---
Bilateral diagnostic digital mammograms with 3-D tomosynthesis: Reason for examination: Follow-up right breast nodules. Routine evaluation of the left breast.. Comparison is made to previous studies dated back to 05/02/2015. Bilateral mammograms in CC and oblique projections were obtained with 2-D imaging and 3-D tomosynthes is imaging on a Siemens Inspiration unit and reviewed on the workstation. Interpretation was made wit h the benefit of CAD. The skin and nipples show no abnormalities. No abnormal axillary lymph nodes are seen. The breast par enchyma is heterogeneously dense. (Breast density: Category C.) There continues be some nodularity po sterior medially in the right breast which is similar to previous exam. There are no new dominant mas ses, suspicious calcifications or architectural distortion. Benign calcifications are present. Impression: Nodular asymmetry in the upper inner quadrant of the right breast which is stable. Ultrasound to foll ow. Your patient's mammogram demonstrates that she has dense breast tissue (breast density category C or D), which could hide abnormalities, and if she has other risk factors for breast cancer that have bee n identified, she might benefit from supplemental screening tests that may be suggested by you as her ordering physician. Dense breast tissue, in and of itself, is a relatively common condition. Therefo re, this information is not provided to cause undue concern, but rather to raise your awareness and t o promote discussion with your patient regarding the presence of other risk factors, in addition to d ense breast tissue. Your patient's mammography results will be sent to her. BI-RAD Category 0: Incomplete. Needs additional imaging evaluation. Right breast ultrasound: Comparison is made to previous studies dated 12/12/2019 and 06/08/2019. Ultrasound examination of the right breast and axilla was performed. At the 1:00 position 5 cm from the nipple, there continues to be a small 4.7 mm hypoechoic circumscri bed lesion which probably represents a small fibroadenoma and is similar in appearance to previous ex am. At the 10:00 position 6 cm from the nipple, there is a 3.8 mm hypoechoic fibrocystic type lesion. No suspicious-appearing nodules are seen. No abnormal appearing lymph nodes are seen in the axilla. IMPRESSION: Small nodule at the 1:00 position which probably represents a fibroadenoma. Small 3.8 mm nodule at the 10:00 position which has a fibrocystic appearance. Recommend 6 month follow-up with ultrasound. BI-RADS Category 3: Probably Benign. "Our facility is accredited by the [employer] Mammography Program." This patient's information has been entered into a reminder system for the patient to be notified wit h the results of her examination and a target date for the next mammogram. Electronically signed by: Bianca Flood MD (09/10/2021 11:30 AM) [email or web address]
== END ==
LOC: KCIC MAMMO 08:36
PROVIDERS: ATTEND Family Medicine
DX: N63.11 Unspecified lump in the right breast, upper outer quadrant (principal)
CPT/HCPCS: 76641; 77066; G0279; 77062